=== PATIENT | male | born 1940 | race Caucasian/White ===

== ENCOUNTER → 2016-05-21 | Outpatient (CLI) | payer MEDICARE ==
[~2016-05-21] MED LIST: ASPI325T OR; ASPI81TA83 PO; ATENPOW PO; AZITPOW PO; CALCIUM GLUCONATE PO; CAPTPOW PO; GARLIC PO; ROSE HIPS PO; SIMV20TA2 OR; TUSSSUS5 OR; VITAMIN C PO; XOPEAER IN; vimpat PO
== END ==
LOC: M LAB 08:55
PROVIDERS: ATTEND Physician Assistant Medical
DX: R42 Dizziness and giddiness (principal)

== ENCOUNTER 2016-06-07 17:05 | Emergency (ER) | payer MEDICARE ==
[2016-06-07] MEDS ORDERED: ASPIRIN 325 MG TAB As Ordered ONE (18:04)
[2016-06-07] MEDS ORDERED: GI COCKTAIL 50ML BTL(HYOSCYAMINE/MAALOX/LIDOCAINE VISCOUS)(1:3:1) As Ordered ONE (18:04)
[2016-06-07] MEDS ORDERED: LABETALOL HCL 100 MG/20 ML VIAL As Ordered ONE (18:04)
[2016-06-07 18:11] LABS: BASO # 0.1 K/mm3 (0.0-0.2); BASO % 1.4 % (0.0-1.0); EOS # 0.2 K/mm3 (0.0-0.50); EOS % 4.5 % (0.0-3.0); LARGE UNSTAINED CELL # 0.1 K/mm3 (0.0-0.4); LARGE UNSTAINED CELL % 1.9 % (0.0-4.0); LYMPH # 1.1 K/mm3 (1.5-4.5); LYMPH % 21.6 % (24.0-44.0); MEAN CORPUSCULAR HEMOGLOBIN 29.6 pg (27.0-33.0); MEAN CORPUSCULAR HGB CONC 32.6 g/dl (32.0-36.5); MEAN CORPUSCULAR VOLUME 90.7 fl (80.0-96.0); MONO # 0.4 K/mm3 (0.0-0.8); MONO % 8.6 % (0.0-5.0); NEUTROPHILS # 2.8 K/mm3 (1.8-7.7); NEUTROPHILS % 61.9 % (36.0-66.0); PLATELET COUNT, AUTOMATED 140 k/mm3 (150-450); RED CELL DISTRIBUTION WIDTH 14.2 % (11.5-14.5); WHITE BLOOD COUNT 4.5 K/mm3 (4.0-10.0)
[2016-06-07 18:30] LABS: INR 1.01
[2016-06-07 18:32] LABS: ANION GAP 6 MEQ/L (8-16); BLOOD UREA NITROGEN 20 MG/DL (7-18); CALCIUM LEVEL 8.3 MG/DL (8.8-10.2); CARBON DIOXIDE LEVEL 31 MEQ/L (21-32); CHLORIDE LEVEL 104 MEQ/L (98-107); CREATININE FOR GFR 1.04 MG/DL (0.70-1.30); GLOMERULAR FILTRATION RATE > 60.0 (>42); GLUCOSE, FASTING 122 MG/DL (83-110); SODIUM LEVEL 141 MEQ/L (136-145)
--- NOTE | 2016-06-07 18:43 | REP ---
Portable chest, single AP view, 06:11 p.m.: Comparison is the PA and lateral chest of 10/11/2013. Lung melo are clear. Cardiac size is magnified by portable positioning. Sternotomy wires are again noted. 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 The zachary, mediastinum, and bony thorax are unremarkable. Impression: There are no acute cardiopulmonary findings. Signed by Mickey Kwon MD 06/07/2016 06:35 P
--- NOTE | 2016-06-07 19:29 | EDDOCDS ---
Nurse's Notes [facility] Name: Mario Gambino Age: 76 yrs Sex: Male : 1940 Arrival Date: 06/07/2016 Time: 17:05 Bed 13 Private MD: TITO CLINTON Diagnosis: Gastro-esophageal reflux disease with esophagitis;Chest pain, unspecified Presentation: 06/07 17:12 Presenting complaint: Patient states: sore throat since sat. today started with mid srm chest pain- has a cough and increases chest pain. denies chest pain radiating anywhere. 81 mg at 0800. Adult Sepsis Screening: The patient does not have new or worsening altered mentation. Patient's respiratory rate is less than 22. Systolic blood pressure is greater than 100. Patient has a qSOFA score of 0- Negative Sepsis Screen. Suicide/Homicide risk assessment- the patient denies having any suicidal and/or homicidal ideations and does not present with any other emotional, behavioral or mental health complaints. Status: Patient is not a service advocate contact or dependent. Transition of care: patient was not received from another setting of care. 17:12 Method Of Arrival: Walkin/Carried/Asstd srm 17:41 Acuity: LYNNE Level 3 mk4 Triage Assessment: 17:17 General: Appears in no apparent distress, Behavior is appropriate for age, cooperative. srm Pain: Pain currently is 4 out of 10 on a pain scale. At worst was 10 out of 10 on a pain scale. Historical: - Allergies: no known allergies; - Home Meds: 1. atorvastatin 80 mg oral tab 1 tab once daily (Last dose: 06/06/2016) 2. aspirin 81 mg Oral tab 1 tab once daily 3. allopurinol 100 mg Oral tab hs 4. captopril 12.5 mg Oral tab 1 tab daily 5. Depakote 500 mg Oral TbEC 2 times per day 6. Vitamin D Oral 50,000 unit weekly - PMHx: Hypercholesterolemia; Hypertension; Gout; - PSHx: open heart surgery; - Social history: Smoking status: Patient states former smoker of tobacco. No barriers to communication noted, The patient speaks fluent Mauritian, Speaks appropriately for age. - Family history: Not pertinent. - : The pt / caregiver states he / she is not on anticoagulants. Home medication list is obtained from the patient. - Exposure Risk Screening:: None identified. Screenin:41 Screening information is obtained from the patient. Fall risk: No risks identified. mk4 Assistance ADL's: requires no assistance with activities of daily living. Abuse/DV Screen: The patient / caregiver reports he/she is: not in a situation that causes fear, pain or injury. Nutritional screening: No deficits noted. Advance Directives: Currently, there is no health care proxy. There is no active DNR order. There is no living will. There is no Power of Folder Machine. Advance directive information has not previously been placed in an [facility] medical record. Further advance directive information is declined. home support is adequate. Assessment: 18:19 General: Appears in no apparent distress, comfortable, Behavior is cooperative. Pain: mk4 Location: chest Pain currently is 2 out of 10 on a pain scale. Cardiovascular: Rhythm is regular. 19:27 Reassessment: Patient appears in no apparent distress at this time. Patient states tm5 feeling better. Patient states symptoms have improved. Cardiovascular: Rhythm is regular. Vital Signs: 17:08 BP 167 / 101; Pulse 77; Resp 16; Temp 99.7(O); Pulse Ox 98% on R/A; Weight 93.89 kg elp (R); Height 5 ft. 11 in. (180.34 cm) (R); 17:40 BP 189 / 97 (auto/); mk4 17:41 Pulse 66 MON; Pulse Ox 96% ; mk4 17:55 BP 205 / 115 (auto/); mk4 17:56 Pulse 70 MON; Pulse Ox 97% ; mk4 18:55 BP 158 / 92 (auto/); tm5 18:56 Pulse 68 MON; Pulse Ox 92% ; tm5 19:27 BP 146 / 76; Pulse 63; Resp 18; Temp 97.8(O); Pulse Ox 95% on R/A; Pain 0/10; tm5 17:08 Body Mass Index 28.87 (93.89 kg, 180.34 cm) elp Vitals: 17:08 Log In Time: June 07, 2016 at 17:06. RN notified that patient meets [place] elp criteria. ED Course: 17:07 Patient visited by Trinity Laughlin PCA. elp 17:07 Patient moved to Waiting elp 17:08 TITO CLINTON is Private Physician. elp 17:10 Patient visited by Trinity Laughlin PCA. elp 17:18 Patient moved to PR srm 17:19 EKG done. (by ED staff). Reviewed by Kulwinder Santos MD. srm 17:41 Patient moved to 13 kcs 17:41 Triage Initiated mk4 17:41 The patient / caregiver is instructed regarding the plan of care and ED course. Cardiac mk4 monitor on. Pulse ox on. NIBP on. 17:41 Inserted saline lock: 20 gauge in left antecubital area and blood collected. No mk4 procedures done that require assistance. 17:47 Ortega Avenda[facility] F[facility]. ke 17:47 Patient visited by Ortega Avendaño FNP. ke 17:47 Patient visited by Ortega Avendaño FNP. ke 18:02 PT/INR Sent. mk4 18:02 Basic Metabolic Profile Sent. mk4 18:02 CBC with Diff Sent. mk4 18:02 Cardiac Injury Profile Sent. mk4 18:02 Troponin Sent. mk4 18:17 Patient visited by Ortega Avendaño FNP. ke 18:21 GATS (NEGATIVE STREP SCREEN) Sent. mk4 18:48 Patient visited by Ortega Avendaño FNP. ke 19:04 [facility] [place] Agreement was scanned into [employer] and attached to record. gb 19:09 TITO CLINTON is Referral Physician. ke 19:09 Lorne Reyna is Referral Physician. ke 19:12 Patient visited by Alice Adams RN. tm5 19:20 Chest, 1 View Returned. EDMS 19:26 Patient visited by Alice Adams RN. tm5 19:27 Discontinued lock intact, bleeding controlled, pressure dressing applied, No tm5 redness/swelling at site. Administered Medications: 18:18 Drug: Aspirin 325 mg [aspirin 325 mg tablet (1 tabs)] Route: PO; mk4 19:13 Follow up: Response: No Adverse Reaction tm5 18:18 Drug: Labetalol 10 mg [labetalol 5 mg/mL intravenous solution (2 mL)] Route: IVP; Rate: mk4 bolus; Infused Over: 2 mins; Site: left antecubital; 19:13 Follow up: Response: Blood pressure is improved; No Adverse Reaction tm5 18:18 Drug: GI Cocktail - (Alum-Mag Hydroxide-Simeth Suspension 225 mg-200 mg-25 mg/5 mL 30 mk4 ml, Lidocaine Liquid 2 % 10 ml, Hyoscyamine Liquid 10 ml) Route: PO; 19:12 Follow up: Response: No Adverse Reaction; Pain is decreased tm5 Order Results: Lab Order: Basic Metabolic Profile; SPEC'M 06/07/16 17:59 Test: GLUCOSE, FASTING; Value: 122; Range: 83-110; Abnormal: Above high normal; Units: MG/DL; Status: F Test: BLOOD UREA NITROGEN; Value: 20; Range: 7-18; Abnormal: Above high normal; Units: MG/DL; Status: F Test: CREATININE FOR GFR; Value: 1.04; Range: 0.70-1.30; Units: MG/DL; Status: F Test: GLOMERULAR FILTRATION RATE; Value: > 60.0; Range: >42; Status: F Test: SODIUM LEVEL; Value: 141; Range: 136-145; Units: MEQ/L; Status: F Test: POTASSIUM SERUM; Value: 4.0; Range: 3.5-5.1; Units: MEQ/L; Status: F Test: CHLORIDE LEVEL; Value: 104; Range: 98-107; Units: MEQ/L; Status: F Test: CARBON DIOXIDE LEVEL; Value: 31; Range: 21-32; Units: MEQ/L; Status: F Test: ANION GAP; Value: 6; Range: 8-16; Abnormal: Below low normal; Units: MEQ/L; Status: F Test: CALCIUM LEVEL; Value: 8.3; Range: 8.8-10.2; Abnormal: Below low normal; Units: MG/DL; Status: F Test Note: ; Units are mL/min/1.73 m2 Chronic Kidney Disease Staging per NKF: Stage I & II GFR >=60 Normal to Mildly Decreased Stage III GFR 30-59 Moderately Decreased Stage IV GFR 15-29 Severely Decreased Stage V GFR <15 Very Little GFR Left ESRD GFR <15 on MAIL DISTRIBUTION SCHEME EXAMINER Lab Order: CBC with Diff; SPEC'M 06/07/16 17:59 Test: WHITE BLOOD COUNT; Value: 4.5; Range: 4.0-10.0; Units: K/mm3; Status: F Test: RED BLOOD COUNT; Value: 4.34; Range: 4.30-6.10; Units: M/mm3; Status: F Test: HEMOGLOBIN; Value: 12.8; Range: 14.0-18.0; Abnormal: Below low normal; Units: g/dl; Status: F Test: HEMATOCRIT; Value: 39.4; Range: 42.0-52.0; Abnormal: Below low normal; Units: %; Status: F Test: MEAN CORPUSCULAR VOLUME; Value: 90.7; Range: 80.0-96.0; Units: fl; Status: F Test: MEAN CORPUSCULAR HEMOGLOBIN; Value: 29.6; Range: 27.0-33.0; Units: pg; Status: F Test: MEAN CORPUSCULAR HGB CONC; Value: 32.6; Range: 32.0-36.5; Units: g/dl; Status: F Test: RED CELL DISTRIBUTION WIDTH; Value: 14.2; Range: 11.5-14.5; Units: %; Status: F Test: PLATELET COUNT, AUTOMATED; Value: 140; Range: 150-450; Abnormal: Below low normal; Units: k/mm3; Status: F Test: NEUTROPHILS %; Value: 61.9; Range: 36.0-66.0; Units: %; Status: F Test: LYMPH %; Value: 21.6; Range: 24.0-44.0; Abnormal: Below low normal; Units: %; Status: F Test: MONO %; Value: 8.6; Range: 0.0-5.0; Abnormal: Above high normal; Units: %; Status: F Test: EOS %; Value: 4.5; Range: 0.0-3.0; Abnormal: Above high normal; Units: %; Status: F Test: BASO %; Value: 1.4; Range: 0.0-1.0; Abnormal: Above high normal; Units: %; Status: F Test: LARGE UNSTAINED CELL %; Value: 1.9; Range: 0.0-4.0; Units: %; Status: F Test: NEUTROPHILS #; Value: 2.8; Range: 1.8-7.7; Units: K/mm3; Status: F Test: LYMPH #; Value: 1.1; Range: 1.5-4.5; Abnormal: Below low normal; Units: K/mm3; Status: F Test: MONO #; Value: 0.4; Range: 0.0-0.8; Units: K/mm3; Status: F Test: EOS #; Value: 0.2; Range: 0.0-0.50; Units: K/mm3; Status: F Test: BASO #; Value: 0.1; Range: 0.0-0.2; Units: K/mm3; Status: F Test: LARGE UNSTAINED CELL #; Value: 0.1; Range: 0.0-0.4; Units: K/mm3; Status: F Lab Order: Cardiac Injury Profile; [facility]' 06/07/16 17:59 Test: CPK CREATINE PHOSPHOKINASE; Value: 282; Range: 39-308; Units: U/L; Status: F Test: CK-MB VALUE MASS; Value: 1.5; Range: 0.0-3.6; Units: NG/ML; Status: F Test: MB/CK RELATIVE INDEX; Value: 0.53; Range: < OR =4; Status: F Test Note: ; DIAGNOSIS CRITERIA MMB ng/ml Relative Index (RI) NON-AMI < or = 5 N/A JAY ZONE > 5 < or = 4 AMI > 5 > 4 Lab Order: Troponin; [facility]' 06/07/16 17:59 Test: TROPONIN I; Value: < 0.02; Range: < 0.10; Units: NG/ML; Status: F Test Note: ; Troponin I Reference Interval for [employer] LOCI: 99th Percentile= 0.00-0.045 ng/ml Risk Stratification: <= 0.10 ng/ml Decreased Risk for Adverse Clinical Events. 0.10-1.50 ng/ml Increased Risk for Adverse Clinical Events. Evaluation of additional criterion and/or repeat testing in 2-6 hours is suggested to rule out myocardial damage. >= 1.50 ng/ml Indicative of Myocardial Injury. Lab Order: PT/INR; SPEC' 06/07/16 17:59 Test: PROTHROMBIN TIME; Value: 13.4; Range: 12.3-14.5; Units: SECONDS; Status: F Test: INR; Value: 1.01; Status: F Test Note: ; THERAPUTIC HUMAN INR VALUES INDICATIONS NORMAL RANGES PROPHYLAXIS/TREATMENT OF: VENOUS THROMBOSIS 2.0-3.0 PULMONARY EMBOLISM 2.0-3.0 PREVENTION OF SYSTEMIC EMBOLISM FROM: TISSUE HEART VALVES 2.0-3.0 ACUTE MYOCARDIAL INFARCTION 2.0-3.0 VALVULAR HEART DISEASE 2.0-3.0 ATRIAL FIBRILLATION 2.0-3.0 MECHANICAL VALVES(HIGH RISK) 2.5-3.5 RECURRENT MYOCARDIAL INFARCTION 2.5-3.5 Lab Order: DEPAKOTE; SPEC'M 06/07/16 17:59 Test: VALPROIC ACID (DEPAKOTE); Value: 45.0; Range: 50.0-100.0; Abnormal: Below low normal; Units: UG/ML; Status: F Radiology Order: Chest, 1 View Test: Chest, 1 View REASON FOR EXAMINATION: Chest Pain; Portable chest, single AP view, 06:11 p.m.:; ; Comparison is the PA and lateral chest of 10/11/2013.; ; Lung melo are clear. 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 shahla 19:27 Discharge Assessment: Patient awake, alert and oriented x 3. No cognitive and/or tm5 functional deficits noted. Patient verbalized understanding of disposition instructions. patient administered narcotics - no. The following High Risk Discharge criteria are identified: None. Discharged to home ambulatory, with significant other. Condition: good Condition: stable Condition: improved. Discharge instructions given to patient, Instructed on discharge instructions, follow up and referral plans. medication usage, Demonstrated understanding of instructions, medications, Pt was receptive of discharge instructions/ teaching. Prescriptions given X 1. No special radiology studies were completed. Property :Personal belongings accompany Pt. 19:28 Patient left the ED. tm5 Signatures: Dispatcher [employer] EDMS Kanchan Ortez RN RN kcs Michelson, Staci, RN RN srm Ger, Dominique, Reg Reg gb Ortega Avendaño, CIVIL PROJECT ENGINEER CIVIL PROJECT ENGINEER Trinity Nesbitt, MINH PHOTOGRAPHER elp Kindra Smith, RN RN mk4 Alice Adams,RN RN tm5 MTDD
--- NOTE | 2016-06-07 19:29 | EDDOCDS ---
Physician Documentation [facility] Name: Mario Gambino Age: 76 yrs Sex: Male : 1940 Arrival Date: 06/07/2016 Time: 17:05 Bed 13 Private MD: TITO CLINTON Disposition: 06/07/16 19:09 Discharged to Home/Self Care. Impression: Gastro-esophageal reflux disease with esophagitis, Chest pain, unspecified. - Condition is Stable. - Discharge Instructions: Nonspecific Chest Pain, Gastroesophageal Reflux Disease, Adult. - Prescriptions for Prilosec 20 mg Oral Capsule - take 1 capsule by ORAL route once daily; 10 capsule. - Medication Reconciliation, Local Pharmacy Hours form. - Follow up: TITO CLINTON; When: 4 - 5 days; Reason: Recheck today's complaints, Continuance of care. Follow up: Lorne Reyna; When: Call to arrange an appointment; Reason: Further diagnostic work-up, Continuance of care. - Problem is an acute exacerbation. - Symptoms have improved. Historical: - Allergies: no known allergies; - Home Meds: 1. atorvastatin 80 mg oral tab 1 tab once daily (Last dose: 06/06/2016) 2. aspirin 81 mg Oral tab 1 tab once daily 3. allopurinol 100 mg Oral tab hs 4. captopril 12.5 mg Oral tab 1 tab daily 5. Depakote 500 mg Oral TbEC 2 times per day 6. Vitamin D Oral 50,000 unit weekly - PMHx: Hypercholesterolemia; Hypertension; Gout; - PSHx: open heart surgery; - Social history: Smoking status: Patient states former smoker of tobacco. No barriers to communication noted, The patient speaks fluent Bolivian, Speaks appropriately for age. - Family history: Not pertinent. - : The pt / caregiver states he / she is not on anticoagulants. Home medication list is obtained from the patient. - Exposure Risk Screening:: None identified. Vital Signs: 06/07 17:08 BP 167 / 101; Pulse 77; Resp 16; Temp 99.7(O); Pulse Ox 98% on R/A; Weight 93.89 kg / elp 206.99 lbs (R); Height 5 ft. 11 in. (180.34 cm) (R); 17:40 BP 189 / 97 (auto/); mk4 17:41 Pulse 66 MON; Pulse Ox 96% ; mk4 17:55 BP 205 / 115 (auto/); mk4 17:56 Pulse 70 MON; Pulse Ox 97% ; mk4 18:55 BP 158 / 92 (auto/); tm5 18:56 Pulse 68 MON; Pulse Ox 92% ; tm5 19:27 BP 146 / 76; Pulse 63; Resp 18; Temp 97.8(O); Pulse Ox 95% on R/A; Pain 0/10; tm5 17:08 Body Mass Index 28.87 (93.89 kg, 180.34 cm) elp MDM: 17:20 ECG WITH READING ER PHYS+CARDIAG ordered. EDMS 17:44 Business Applications Developer/Pulse Ox/q 30 min VS ordered. br1 17:44 IV Saline Lock ordered. br1 17:44 Rhythm Strip to chart ordered. br1 17:44 Undress patient appropriately for examination ordered. br1 17:45 Strep Screen, Nursing ordered. br1 17:45 Basic Metabolic Profile Ordered. EDMS 17:45 CBC with Diff Ordered. EDMS 17:45 Cardiac Injury Profile Ordered. EDMS 17:45 Troponin Ordered. EDMS 17:45 Chest, 1 View Ordered. EDMS 17:53 Aspirin 325 mg PO once ordered. ke 17:53 Labetalol 10 mg IVP at bolus once over 2 mins ordered. ke 17:53 GI Cocktail - (Alum-Mag Hydroxide-Simeth 30 ml, Lidocaine 10 ml, Hyoscyamine 10 ml) PO ke once; Pre-mixed 50mL unit dose ordered. 17:54 PT/INR Ordered. EDMS 17:54 DEPAKOTE Ordered. EDMS 18:20 GATS (NEGATIVE STREP SCREEN) Ordered. EDMS 18:44 Basic Metabolic Profile Reviewed. ke 18:44 CBC with Diff Reviewed. ke 18:44 DEPAKOTE Reviewed. ke 18:44 Cardiac Injury Profile Reviewed. ke 18:44 Troponin Reviewed. ke 18:44 PT/INR Reviewed. ke 19:00 Financial registration complete. gb 19:04 [facility] Payment Agreement was scanned into [employer] and attached to record. gb Administered Medications: 18:18 Drug: Aspirin 325 mg [aspirin 325 mg tablet (1 tabs)] Route: PO; mk4 19:13 Follow up: Response: No Adverse Reaction tm5 18:18 Drug: Labetalol 10 mg [labetalol 5 mg/mL intravenous solution (2 mL)] Route: IVP; Rate: mk4 bolus; Infused Over: 2 mins; Site: left antecubital; 19:13 Follow up: Response: Blood pressure is improved; No Adverse Reaction tm5 18:18 Drug: GI Cocktail - (Alum-Mag Hydroxide-Simeth Suspension 225 mg-200 mg-25 mg/5 mL 30 mk4 ml, Lidocaine Liquid 2 % 10 ml, Hyoscyamine Liquid 10 ml) Route: PO; 19:12 Follow up: Response: No Adverse Reaction; Pain is decreased tm5 Signatures: Dispatcher [employer] EDMS Candida Vinson, RN RN srm Ger, Dominique, Reg Reg gb Ortega Avendaño, WELT TRIMMING MACHINE OPERATOR WELT TRIMMING MACHINE OPERATOR Kulwinder Schwartz MD MD br1 Kindra Smith RN RN mk4 Alice Adams RN RN tm5 The chart was reviewed and I authenticate all verbal orders and agree with the evaluation and treatment provided.Attachments: 19:04 [facility] Payment Agreement gb MTDD
--- NOTE | 2016-06-09 20:29 | EDDOCDS ---
Physician Documentation [facility] Name: Mario Gambino Age: 76 yrs Sex: Male : 1940 Arrival Date: 06/07/2016 Time: 17:05 Bed 13 Private MD: TITO CLINTON Disposition: 06/07/16 19:09 Discharged to Home/Self Care. Impression: Gastro-esophageal reflux disease with esophagitis, Chest pain, unspecified. - Condition is Stable. - Discharge Instructions: Nonspecific Chest Pain, Gastroesophageal Reflux Disease, Adult. - Prescriptions for Prilosec 20 mg Oral Capsule - take 1 capsule by ORAL route once daily; 10 capsule. - Medication Reconciliation, Local Pharmacy Hours form. - Follow up: TITO CLINTON; When: 4 - 5 days; Reason: Recheck today's complaints, Continuance of care. Follow up: Lorne Reyna; When: Call to arrange an appointment; Reason: Further diagnostic work-up, Continuance of care. - Problem is an acute exacerbation. - Symptoms have improved. Historical: - Allergies: no known allergies; - Home Meds: 1. atorvastatin 80 mg oral tab 1 tab once daily (Last dose: 06/06/2016) 2. aspirin 81 mg Oral tab 1 tab once daily 3. allopurinol 100 mg Oral tab hs 4. captopril 12.5 mg Oral tab 1 tab daily 5. Depakote 500 mg Oral TbEC 2 times per day 6. Vitamin D Oral 50,000 unit weekly - PMHx: Hypercholesterolemia; Hypertension; Gout; - PSHx: open heart surgery; - Social history: Smoking status: Patient states former smoker of tobacco. No barriers to communication noted, The patient speaks fluent Bulgarian, Speaks appropriately for age. - Family history: Not pertinent. - : The pt / caregiver states he / she is not on anticoagulants. Home medication list is obtained from the patient. - Exposure Risk Screening:: None identified. Vital Signs: 06/07 17:08 BP 167 / 101; Pulse 77; Resp 16; Temp 99.7(O); Pulse Ox 98% on R/A; Weight 93.89 kg / elp 206.99 lbs (R); Height 5 ft. 11 in. (180.34 cm) (R); 17:40 BP 189 / 97 (auto/); mk4 17:41 Pulse 66 MON; Pulse Ox 96% ; mk4 17:55 BP 205 / 115 (auto/); mk4 17:56 Pulse 70 MON; Pulse Ox 97% ; mk4 18:55 BP 158 / 92 (auto/); tm5 18:56 Pulse 68 MON; Pulse Ox 92% ; tm5 19:27 BP 146 / 76; Pulse 63; Resp 18; Temp 97.8(O); Pulse Ox 95% on R/A; Pain 0/10; tm5 17:08 Body Mass Index 28.87 (93.89 kg, 180.34 cm) elp MDM: 17:20 ECG WITH READING ER PHYS+CARDIAG ordered. EDMS 17:44 Final Coat Sprayer/Pulse Ox/q 30 min VS ordered. br1 17:44 IV Saline Lock ordered. br1 17:44 Rhythm Strip to chart ordered. br1 17:44 Undress patient appropriately for examination ordered. br1 17:45 Strep Screen, Nursing ordered. br1 17:45 Basic Metabolic Profile Ordered. EDMS 17:45 CBC with Diff Ordered. EDMS 17:45 Cardiac Injury Profile Ordered. EDMS 17:45 Troponin Ordered. EDMS 17:45 Chest, 1 View Ordered. EDMS 17:53 Aspirin 325 mg PO once ordered. ke 17:53 Labetalol 10 mg IVP at bolus once over 2 mins ordered. ke 17:53 GI Cocktail - (Alum-Mag Hydroxide-Simeth 30 ml, Lidocaine 10 ml, Hyoscyamine 10 ml) PO ke once; Pre-mixed 50mL unit dose ordered. 17:54 PT/INR Ordered. EDMS 17:54 DEPAKOTE Ordered. EDMS 18:20 GATS (NEGATIVE STREP SCREEN) Ordered. EDMS 18:44 Basic Metabolic Profile Reviewed. ke 18:44 CBC with Diff Reviewed. ke 18:44 DEPAKOTE Reviewed. ke 18:44 Cardiac Injury Profile Reviewed. ke 18:44 Troponin Reviewed. ke 18:44 PT/INR Reviewed. ke 19:00 Financial registration complete. gb 19:04 [facility] Payment Agreement was scanned into [employer] and attached to record. gb 06/08 10:53 T-Sheet-- Draft Copy was scanned into [employer] and attached to record. gb 10:53 ECG/EKG was scanned into [employer] and attached to record. gb Administered Medications: 06/07 18:18 Drug: Aspirin 325 mg [aspirin 325 mg tablet (1 tabs)] Route: PO; mk4 19:13 Follow up: Response: No Adverse Reaction tm5 18:18 Drug: Labetalol 10 mg [labetalol 5 mg/mL intravenous solution (2 mL)] Route: IVP; Rate: mk4 bolus; Infused Over: 2 mins; Site: left antecubital; 19:13 Follow up: Response: Blood pressure is improved; No Adverse Reaction tm5 18:18 Drug: GI Cocktail - (Alum-Mag Hydroxide-Simeth Suspension 225 mg-200 mg-25 mg/5 mL 30 mk4 ml, Lidocaine Liquid 2 % 10 ml, Hyoscyamine Liquid 10 ml) Route: PO; 19:12 Follow up: Response: No Adverse Reaction; Pain is decreased tm5 Signatures: Dispatcher [employer] EDMS Candida Vinson, RN RN srm Ger, Dominique, Reg Reg gb Ortega Avendaño, HYDROSTATIC TESTER HYDROSTATIC TESTER Kulwinder Schwartz MD MD br1 Kindra Smith RN RN mk4 Alice Adams RN RN tm5 The chart was reviewed and I authenticate all verbal orders and agree with the evaluation and treatment provided.Attachments: 19:04 [facility] Payment Agreement gb 06/08 10:53 T-Sheet-- Draft Copy gb 10:53 ECG/EKG Chart Complete MTDD
--- NOTE | 2016-06-09 20:29 | EDDOCDS ---
Physician Documentation [facility] Name: Mario Gambino Age: 76 yrs Sex: Male : 1940 Arrival Date: 06/07/2016 Time: 17:05 Bed 13 Private MD: TITO CLINTON Disposition: 06/07/16 19:09 Discharged to Home/Self Care. Impression: Gastro-esophageal reflux disease with esophagitis, Chest pain, unspecified. - Condition is Stable. - Discharge Instructions: Nonspecific Chest Pain, Gastroesophageal Reflux Disease, Adult. - Prescriptions for Prilosec 20 mg Oral Capsule - take 1 capsule by ORAL route once daily; 10 capsule. - Medication Reconciliation, Local Pharmacy Hours form. - Follow up: TITO CLINTON; When: 4 - 5 days; Reason: Recheck today's complaints, Continuance of care. Follow up: Lorne Reyna; When: Call to arrange an appointment; Reason: Further diagnostic work-up, Continuance of care. - Problem is an acute exacerbation. - Symptoms have improved. Historical: - Allergies: no known allergies; - Home Meds: 1. atorvastatin 80 mg oral tab 1 tab once daily (Last dose: 06/06/2016) 2. aspirin 81 mg Oral tab 1 tab once daily 3. allopurinol 100 mg Oral tab hs 4. captopril 12.5 mg Oral tab 1 tab daily 5. Depakote 500 mg Oral TbEC 2 times per day 6. Vitamin D Oral 50,000 unit weekly - PMHx: Hypercholesterolemia; Hypertension; Gout; - PSHx: open heart surgery; - Social history: Smoking status: Patient states former smoker of tobacco. No barriers to communication noted, The patient speaks fluent Zimbabwean, Speaks appropriately for age. - Family history: Not pertinent. - : The pt / caregiver states he / she is not on anticoagulants. Home medication list is obtained from the patient. - Exposure Risk Screening:: None identified. Vital Signs: 06/07 17:08 BP 167 / 101; Pulse 77; Resp 16; Temp 99.7(O); Pulse Ox 98% on R/A; Weight 93.89 kg / elp 206.99 lbs (R); Height 5 ft. 11 in. (180.34 cm) (R); 17:40 BP 189 / 97 (auto/); mk4 17:41 Pulse 66 MON; Pulse Ox 96% ; mk4 17:55 BP 205 / 115 (auto/); mk4 17:56 Pulse 70 MON; Pulse Ox 97% ; mk4 18:55 BP 158 / 92 (auto/); tm5 18:56 Pulse 68 MON; Pulse Ox 92% ; tm5 19:27 BP 146 / 76; Pulse 63; Resp 18; Temp 97.8(O); Pulse Ox 95% on R/A; Pain 0/10; tm5 17:08 Body Mass Index 28.87 (93.89 kg, 180.34 cm) elp MDM: 17:20 ECG WITH READING ER PHYS+CARDIAG ordered. EDMS 17:44 Mri Specialist/Pulse Ox/q 30 min VS ordered. br1 17:44 IV Saline Lock ordered. br1 17:44 Rhythm Strip to chart ordered. br1 17:44 Undress patient appropriately for examination ordered. br1 17:45 Strep Screen, Nursing ordered. br1 17:45 Basic Metabolic Profile Ordered. EDMS 17:45 CBC with Diff Ordered. EDMS 17:45 Cardiac Injury Profile Ordered. EDMS 17:45 Troponin Ordered. EDMS 17:45 Chest, 1 View Ordered. EDMS 17:53 Aspirin 325 mg PO once ordered. ke 17:53 Labetalol 10 mg IVP at bolus once over 2 mins ordered. ke 17:53 GI Cocktail - (Alum-Mag Hydroxide-Simeth 30 ml, Lidocaine 10 ml, Hyoscyamine 10 ml) PO ke once; Pre-mixed 50mL unit dose ordered. 17:54 PT/INR Ordered. EDMS 17:54 DEPAKOTE Ordered. EDMS 18:20 GATS (NEGATIVE STREP SCREEN) Ordered. EDMS 18:44 Basic Metabolic Profile Reviewed. ke 18:44 CBC with Diff Reviewed. ke 18:44 DEPAKOTE Reviewed. ke 18:44 Cardiac Injury Profile Reviewed. ke 18:44 Troponin Reviewed. ke 18:44 PT/INR Reviewed. ke 19:00 Financial registration complete. gb 19:04 [facility] Payment Agreement was scanned into [employer] and attached to record. gb 06/08 10:53 T-Sheet-- Draft Copy was scanned into [employer] and attached to record. gb 10:53 ECG/EKG was scanned into [employer] and attached to record. gb Administered Medications: 06/07 18:18 Drug: Aspirin 325 mg [aspirin 325 mg tablet (1 tabs)] Route: PO; mk4 19:13 Follow up: Response: No Adverse Reaction tm5 18:18 Drug: Labetalol 10 mg [labetalol 5 mg/mL intravenous solution (2 mL)] Route: IVP; Rate: mk4 bolus; Infused Over: 2 mins; Site: left antecubital; 19:13 Follow up: Response: Blood pressure is improved; No Adverse Reaction tm5 18:18 Drug: GI Cocktail - (Alum-Mag Hydroxide-Simeth Suspension 225 mg-200 mg-25 mg/5 mL 30 mk4 ml, Lidocaine Liquid 2 % 10 ml, Hyoscyamine Liquid 10 ml) Route: PO; 19:12 Follow up: Response: No Adverse Reaction; Pain is decreased tm5 Signatures: Dispatcher MedHost EDMS Candida Vinson, RN RN srm Ger, Dominique, Reg Reg gb Ortega Avendaño, HAND COREMAKER HAND COREMAKER Kulwinder Schwartz MD MD br1 Kindra Smith RN RN mk4 Alice Adams RN RN tm5 The chart was reviewed and I authenticate all verbal orders and agree with the evaluation and treatment provided.Attachments: 19:04 [facility] Payment Agreement gb 06/08 10:53 T-Sheet-- Draft Copy gb 10:53 ECG/EKG Chart Complete MTDD
--- NOTE | 2016-06-09 20:30 | EDDOCDS ---
Nurse's Notes [facility] Name: Mario Gambino Age: 76 yrs Sex: Male : 1940 Arrival Date: 06/07/2016 Time: 17:05 Bed 13 Private MD: TITO CLINTON Diagnosis: Gastro-esophageal reflux disease with esophagitis;Chest pain, unspecified Presentation: 06/07 17:12 Presenting complaint: Patient states: sore throat since sat. today started with mid srm chest pain- has a cough and increases chest pain. denies chest pain radiating anywhere. 81 mg at 0800. Adult Sepsis Screening: The patient does not have new or worsening altered mentation. Patient's respiratory rate is less than 22. Systolic blood pressure is greater than 100. Patient has a qSOFA score of 0- Negative Sepsis Screen. Suicide/Homicide risk assessment- the patient denies having any suicidal and/or homicidal ideations and does not present with any other emotional, behavioral or mental health complaints. 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 Transition of care: patient was not received from another setting of care. 17:12 Method Of Arrival: Walkin/Carried/Asstd srm 17:41 Acuity: LYNNE Level 3 mk4 Triage Assessment: 17:17 General: Appears in no apparent distress, Behavior is appropriate for age, cooperative. srm Pain: Pain currently is 4 out of 10 on a pain scale. At worst was 10 out of 10 on a pain scale. Historical: - Allergies: no known allergies; - Home Meds: 1. atorvastatin 80 mg oral tab 1 tab once daily (Last dose: 06/06/2016) 2. aspirin 81 mg Oral tab 1 tab once daily 3. allopurinol 100 mg Oral tab hs 4. captopril 12.5 mg Oral tab 1 tab daily 5. Depakote 500 mg Oral TbEC 2 times per day 6. Vitamin D Oral 50,000 unit weekly - PMHx: Hypercholesterolemia; Hypertension; Gout; - PSHx: open heart surgery; - Social history: Smoking status: Patient states former smoker of tobacco. No barriers to communication noted, The patient speaks fluent Niuean, Speaks appropriately for age. - Family history: Not pertinent. - : The pt / caregiver states he / she is not on anticoagulants. Home medication list is obtained from the patient. - Exposure Risk Screening:: None identified. Screenin:41 Screening information is obtained from the patient. Fall risk: No risks identified. mk4 Assistance ADL's: requires no assistance with activities of daily living. Abuse/DV Screen: The patient / caregiver reports he/she is: not in a situation that causes fear, pain or injury. Nutritional screening: No deficits noted. Advance Directives: Currently, there is no health care proxy. There is no active DNR order. There is no living will. There is no Power of Gravity Prospecting Observer Helper. Advance directive information has not previously been placed in an [facility] medical record. Further advance directive information is declined. home support is adequate. Assessment: 18:19 General: Appears in no apparent distress, comfortable, Behavior is cooperative. Pain: mk4 Location: chest Pain currently is 2 out of 10 on a pain scale. Cardiovascular: Rhythm is regular. 19:27 Reassessment: Patient appears in no apparent distress at this time. Patient states tm5 feeling better. Patient states symptoms have improved. Cardiovascular: Rhythm is regular. Vital Signs: 17:08 BP 167 / 101; Pulse 77; Resp 16; Temp 99.7(O); Pulse Ox 98% on R/A; Weight 93.89 kg elp (R); Height 5 ft. 11 in. (180.34 cm) (R); 17:40 BP 189 / 97 (auto/); mk4 17:41 Pulse 66 MON; Pulse Ox 96% ; mk4 17:55 BP 205 / 115 (auto/); mk4 17:56 Pulse 70 MON; Pulse Ox 97% ; mk4 18:55 BP 158 / 92 (auto/); tm5 18:56 Pulse 68 MON; Pulse Ox 92% ; tm5 19:27 BP 146 / 76; Pulse 63; Resp 18; Temp 97.8(O); Pulse Ox 95% on R/A; Pain 0/10; tm5 17:08 Body Mass Index 28.87 (93.89 kg, 180.34 cm) elp Vitals: 17:08 Log In Time: June 07, 2016 at 17:06. RN notified that patient meets Red Flag elp criteria. ED Course: 17:07 Patient visited by Trinity Laughlin PCA. elp 17:07 Patient moved to Waiting elp 17:08 TITO CLINTON is Private Physician. elp 17:10 Patient visited by Trinity Laughlin PCA. elp 17:18 Patient moved to PR srm 17:19 EKG done. (by ED staff). Reviewed by Kulwinder Santos MD. srm 17:41 Patient moved to 13 kcs 17:41 Triage Initiated mk4 17:41 The patient / caregiver is instructed regarding the plan of care and ED course. Cardiac mk4 monitor on. Pulse ox on. NIBP on. 17:41 Inserted saline lock: 20 gauge in left antecubital area and blood collected. No mk4 procedures done that require assistance. 17:47 Ortega Avendaño FNP is [facility]. ke 17:47 Patient visited by Ortega Avendaño FNP. ke 17:47 Patient visited by Ortega Avendaño FNP. ke 18:02 PT/INR Sent. mk4 18:02 Basic Metabolic Profile Sent. mk4 18:02 CBC with Diff Sent. mk4 18:02 Cardiac Injury Profile Sent. mk4 18:02 Troponin Sent. mk4 18:17 Patient visited by Ortega Avendaño FNP. ke 18:21 GATS (NEGATIVE STREP SCREEN) Sent. mk4 18:48 Patient visited by Ortega Avendaño FNP. ke 19:04 [facility] Payment Agreement was scanned into [employer] and attached to record. gb 19:09 TITO CLINTON is Referral Physician. ke 19:09 Lorne Reyna is Referral Physician. ke 19:12 Patient visited by Alice Adams RN. tm5 19:20 Chest, 1 View Returned. EDMS 19:26 Patient visited by Alice Adams RN. tm5 19:27 Discontinued lock intact, bleeding controlled, pressure dressing applied, No tm5 redness/swelling at site. 06/08 10:53 T-Sheet-- Draft Copy was scanned into [employer] and attached to record. gb 10:53 ECG/EKG was scanned into [employer] and attached to record. gb Administered Medications: 06/07 18:18 Drug: Aspirin 325 mg [aspirin 325 mg tablet (1 tabs)] Route: PO; mk4 19:13 Follow up: Response: No Adverse Reaction tm5 18:18 Drug: Labetalol 10 mg [labetalol 5 mg/mL intravenous solution (2 mL)] Route: IVP; Rate: mk4 bolus; Infused Over: 2 mins; Site: left antecubital; 19:13 Follow up: Response: Blood pressure is improved; No Adverse Reaction tm5 18:18 Drug: GI Cocktail - (Alum-Mag Hydroxide-Simeth Suspension 225 mg-200 mg-25 mg/5 mL 30 mk4 ml, Lidocaine Liquid 2 % 10 ml, Hyoscyamine Liquid 10 ml) Route: PO; 19:12 Follow up: Response: No Adverse Reaction; Pain is decreased tm5 Order Results: Lab Order: Basic Metabolic Profile; SPEC'M 06/07/16 17:59 Test: GLUCOSE, FASTING; Value: 122; Range: 83-110; Abnormal: Above high normal; Units: MG/DL; Status: F Test: BLOOD UREA NITROGEN; Value: 20; Range: 7-18; Abnormal: Above high normal; Units: MG/DL; Status: F Test: CREATININE FOR GFR; Value: 1.04; Range: 0.70-1.30; Units: MG/DL; Status: F Test: GLOMERULAR FILTRATION RATE; Value: > 60.0; Range: >42; Status: F Test: SODIUM LEVEL; Value: 141; Range: 136-145; Units: MEQ/L; Status: F Test: POTASSIUM SERUM; Value: 4.0; Range: 3.5-5.1; Units: MEQ/L; Status: F Test: CHLORIDE LEVEL; Value: 104; Range: 98-107; Units: MEQ/L; Status: F Test: CARBON DIOXIDE LEVEL; Value: 31; Range: 21-32; Units: MEQ/L; Status: F Test: ANION GAP; Value: 6; Range: 8-16; Abnormal: Below low normal; Units: MEQ/L; Status: F Test: CALCIUM LEVEL; Value: 8.3; Range: 8.8-10.2; Abnormal: Below low normal; Units: MG/DL; Status: F Test Note: ; Units are mL/min/1.73 m2 Chronic Kidney Disease Staging per NKF: Stage I & II GFR >=60 Normal to Mildly Decreased Stage III GFR 30-59 Moderately Decreased Stage IV GFR 15-29 Severely Decreased Stage V GFR <15 Very Little GFR Left ESRD GFR <15 on SUPERVISOR SOAKERS Lab Order: CBC with Diff; SPEC'M 06/07/16 17:59 Test: WHITE BLOOD COUNT; Value: 4.5; Range: 4.0-10.0; Units: K/mm3; Status: F Test: RED BLOOD COUNT; Value: 4.34; Range: 4.30-6.10; Units: M/mm3; Status: F Test: HEMOGLOBIN; Value: 12.8; Range: 14.0-18.0; Abnormal: Below low normal; Units: g/dl; Status: F Test: HEMATOCRIT; Value: 39.4; Range: 42.0-52.0; Abnormal: Below low normal; Units: %; Status: F Test: MEAN CORPUSCULAR VOLUME; Value: 90.7; Range: 80.0-96.0; Units: fl; Status: F Test: MEAN CORPUSCULAR HEMOGLOBIN; Value: 29.6; Range: 27.0-33.0; Units: pg; Status: F Test: MEAN CORPUSCULAR HGB CONC; Value: 32.6; Range: 32.0-36.5; Units: g/dl; Status: F Test: RED CELL DISTRIBUTION WIDTH; Value: 14.2; Range: 11.5-14.5; Units: %; Status: F Test: PLATELET COUNT, AUTOMATED; Value: 140; Range: 150-450; Abnormal: Below low normal; Units: k/mm3; Status: F Test: NEUTROPHILS %; Value: 61.9; Range: 36.0-66.0; Units: %; Status: F Test: LYMPH %; Value: 21.6; Range: 24.0-44.0; Abnormal: Below low normal; Units: %; Status: F Test: MONO %; Value: 8.6; Range: 0.0-5.0; Abnormal: Above high normal; Units: %; Status: F Test: EOS %; Value: 4.5; Range: 0.0-3.0; Abnormal: Above high normal; Units: %; Status: F Test: BASO %; Value: 1.4; Range: 0.0-1.0; Abnormal: Above high normal; Units: %; Status: F Test: LARGE UNSTAINED CELL %; Value: 1.9; Range: 0.0-4.0; Units: %; Status: F Test: NEUTROPHILS #; Value: 2.8; Range: 1.8-7.7; Units: K/mm3; Status: F Test: LYMPH #; Value: 1.1; Range: 1.5-4.5; Abnormal: Below low normal; Units: K/mm3; Status: F Test: MONO #; Value: 0.4; Range: 0.0-0.8; Units: K/mm3; Status: F Test: EOS #; Value: 0.2; Range: 0.0-0.50; Units: K/mm3; Status: F Test: BASO #; Value: 0.1; Range: 0.0-0.2; Units: K/mm3; Status: F Test: LARGE UNSTAINED CELL #; Value: 0.1; Range: 0.0-0.4; Units: K/mm3; Status: F Lab Order: Cardiac Injury Profile; [facility] 06/07/16 17:59 Test: CPK CREATINE PHOSPHOKINASE; Value: 282; Range: 39-308; Units: U/L; Status: F Test: CK-MB VALUE MASS; Value: 1.5; Range: 0.0-3.6; Units: NG/ML; Status: F Test: MB/CK RELATIVE INDEX; Value: 0.53; Range: < OR =4; Status: F Test Note: ; DIAGNOSIS CRITERIA MMB ng/ml Relative Index (RI) NON-AMI < or = 5 N/A JAY ZONE > 5 < or = 4 AMI > 5 > 4 Lab Order: Troponin; [facility]' 06/07/16 17:59 Test: TROPONIN I; Value: < 0.02; Range: < 0.10; Units: NG/ML; Status: F Test Note: ; Troponin I Reference Interval for [employer] LOCI: 99th Percentile= 0.00-0.045 ng/ml Risk Stratification: <= 0.10 ng/ml Decreased Risk for Adverse Clinical Events. 0.10-1.50 ng/ml Increased Risk for Adverse Clinical Events. Evaluation of additional criterion and/or repeat testing in 2-6 hours is suggested to rule out myocardial damage. >= 1.50 ng/ml Indicative of Myocardial Injury. Lab Order: PT/INR; [facility]' 06/07/16 17:59 Test: PROTHROMBIN TIME; Value: 13.4; Range: 12.3-14.5; Units: SECONDS; Status: F Test: INR; Value: 1.01; Status: F Test Note: ; THERAPUTIC HUMAN INR VALUES INDICATIONS NORMAL RANGES PROPHYLAXIS/TREATMENT OF: VENOUS THROMBOSIS 2.0-3.0 PULMONARY EMBOLISM 2.0-3.0 PREVENTION OF SYSTEMIC EMBOLISM FROM: TISSUE HEART VALVES 2.0-3.0 ACUTE MYOCARDIAL INFARCTION 2.0-3.0 VALVULAR HEART DISEASE 2.0-3.0 ATRIAL FIBRILLATION 2.0-3.0 MECHANICAL VALVES(HIGH RISK) 2.5-3.5 RECURRENT MYOCARDIAL INFARCTION 2.5-3.5 Lab Order: DEPAKOTE; SPEC'M 06/07/16 17:59 Test: VALPROIC ACID (DEPAKOTE); Value: 45.0; Range: 50.0-100.0; Abnormal: Below low normal; Units: UG/ML; Status: F Lab Order: GATS (NEGATIVE STREP SCREEN); SPEC'M 06/07/16 17:59 Test: GATS CULTURE (NEG STREP SCR); Value: GATS RESULT NEGATIVE FOR STREP PYOGENES (GROUP A); Status: F Test: GATS CULTURE (NEG STREP SCR); Value: <EXTERNAL COMMENT eCWMed> FULL REPORT IN LAB NOTES (eCW and Medent).; Status: F Radiology Order: Chest, 1 View Test: Chest, 1 View REASON FOR EXAMINATION: Chest Pain; Portable chest, single AP view, 06:11 p.m.:; ; Comparison is the PA and lateral chest of 10/11/2013.; ; Lung melo are clear. 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 shahla 19:27 Discharge Assessment: Patient awake, alert and oriented x 3. No cognitive and/or tm5 functional deficits noted. Patient verbalized understanding of disposition instructions. patient administered narcotics - no. The following High Risk Discharge criteria are identified: None. Discharged to home ambulatory, with significant other. Condition: good Condition: stable Condition: improved. Discharge instructions given to patient, Instructed on discharge instructions, follow up and referral plans. medication usage, Demonstrated understanding of instructions, medications, Pt was receptive of discharge instructions/ teaching. Prescriptions given X 1. No special radiology studies were completed. Property :Personal belongings accompany Pt. 19:28 Patient left the ED. tm5 Signatures: Dispatcher MedHost EDKanchan Ma, RN RN Candida Jewell, RN RN [facility] Dominique Cyr, Reg Reg Ortega Malagon, CATALYST CONCENTRATION OPERATOR CATALYST CONCENTRATION OPERATOR Trinity Nesbitt, MINH RANCH HELPER Kindra Forbes, RN RN mk4 Alice Adams,RN RN tm5 Chart Complete [facility]
--- NOTE | 2016-06-10 08:49 | ECGEPIP ---
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
== END 2016-06-07 19:28 | disposition home or self-care (01) ==
LOC: M ED 17:05
DX: K21.0 Gastro-esophageal reflux disease with esophagitis (principal); R07.89 Other chest pain; E78.00 Pure hypercholesterolemia, unspecified; I10 Essential (primary) hypertension; M10.9 Gout, unspecified; Z87.891 Personal history of nicotine dependence; Z79.82 Long term (current) use of aspirin; Z79.899 Other long term (current) drug therapy

== ENCOUNTER 2016-06-22 18:50 | Emergency (ER) | payer MEDICARE ==
[2016-06-22 20:16] LABS: HCT SOURCE LFT KNEE; SYNOVIAL FLUID COLOR RED (YELLOW)
[2016-06-22 20:17] LABS: BASO % 0.5 % (0.0-1.0); EOS # 0.2 K/mm3 (0.0-0.50); EOS % 2.2 % (0.0-3.0); LARGE UNSTAINED CELL # 0.1 K/mm3 (0.0-0.4); LARGE UNSTAINED CELL % 1.5 % (0.0-4.0); LYMPH % 25.7 % (24.0-44.0); MEAN CORPUSCULAR HEMOGLOBIN 30.1 pg (27.0-33.0); MEAN CORPUSCULAR HGB CONC 33.3 g/dl (32.0-36.5); MEAN CORPUSCULAR VOLUME 90.4 fl (80.0-96.0); MONO # 0.6 K/mm3 (0.0-0.8); MONO % 8.1 % (0.0-5.0); NEUTROPHILS # 4.7 K/mm3 (1.8-7.7); NEUTROPHILS % 62.1 % (36.0-66.0); PLATELET COUNT, AUTOMATED 320 k/mm3 (150-450); RED CELL DISTRIBUTION WIDTH 13.2 % (11.5-14.5); WHITE BLOOD COUNT 7.5 K/mm3 (4.0-10.0)
[2016-06-22 20:41] LABS: ERYTHROCYTE SEDIMENTATION RATE 68 mm/hr (0-20)
[2016-06-22 20:43] LABS: ALBUMIN 2.9 GM/DL (3.2-5.2); ALBUMIN/GLOBULIN RATIO 0.57 (1.00-1.93); ALKALINE PHOSPHATASE 120 U/L (45-117); ALT/SGPT 16 U/L (12-78); ANION GAP 4 MEQ/L (8-16); AST/SGOT 20 U/L (15-37); BILIRUBIN,TOTAL 0.2 MG/DL (0.2-1.0); BLOOD UREA NITROGEN 19 MG/DL (7-18); CALCIUM LEVEL 8.2 MG/DL (8.8-10.2); CARBON DIOXIDE LEVEL 34 MEQ/L (21-32); CHLORIDE LEVEL 101 MEQ/L (98-107); CREATININE FOR GFR 1.02 MG/DL (0.70-1.30); GLOMERULAR FILTRATION RATE > 60.0 (>42); GLUCOSE, FASTING 107 MG/DL (83-110); POTASSIUM SERUM 4.7 MEQ/L (3.5-5.1); SODIUM LEVEL 139 MEQ/L (136-145)
--- NOTE | 2016-06-22 20:55 | EDDOCDS ---
Nurse's Notes [facility] Name: Mario Gambino Age: 76 yrs Sex: Male : 1940 Arrival Date: 06/22/2016 Time: 18:50 Bed TR7 Private MD: Jeffrey Aragon Diagnosis: Prepatellar bursitis, left knee Presentation: 06/22 18:54 Presenting complaint: Patient states: that he has pain in her L knee and is concerned ms18 about some redness. PT has a large bump under his L knee that he states has been there since he was young due to an injury. Adult Sepsis Screening: The patient does not have new or worsening altered mentation. Patient's respiratory rate is less than 22. Systolic blood pressure is greater than 100. Patient has a qSOFA score of 0- Negative Sepsis Screen. Suicide/Homicide risk assessment- the patient denies having any suicidal and/or homicidal ideations and does not present with any other emotional, behavioral or mental health complaints. Status: Patient is not a customer service rep or dependent. Transition of care: patient was not received from another setting of care. 18:54 Acuity: LYNNE Level 4 ms18 18:54 Method Of Arrival: Walkin/Carried/Asstd ms18 Triage Assessment: 18:59 General: Appears in no apparent distress, comfortable, Behavior is appropriate for age, ms18 cooperative. Pain: Denies pain. Location: left knee Aggravated by increased activity. Neurological: No deficits noted. Respiratory: No deficits noted. Derm: Skin is intact, Skin is pink, warm & dry. normal. Historical: - Allergies: no known allergies; - Home Meds: 1. allopurinol 100 mg Oral tab HS 2. aspirin 81 mg Oral tab 1 tab once daily 3. atorvastatin 80 mg oral tab 1 tab once daily 4. captopril 12.5 mg Oral tab 1 tab daily 5. Depakote 500 mg Oral TbEC 2 times per day 6. [place] [address] unit weekly - PMHx: Gout; Hypercholesterolemia; Hypertension; - PSHx: CABG; valve replacement; - Social history: Smoking status: Patient states former smoker of tobacco. No barriers to communication noted, The patient speaks fluent Nigerian. - Family history: Not pertinent. - : The pt / caregiver states he / she is not on anticoagulants. Home medication list is obtained from the patient. - Exposure Risk Screening:: None identified. Screenin:52 Screening information is obtained from the patient. Fall risk: No risks identified. jmb Assistance ADL's: requires no assistance with activities of daily living. Abuse/DV Screen: The patient / caregiver reports he/she is: not in a situation that causes fear, pain or injury. Nutritional screening: No deficits noted. Advance Directives: Currently, there is no health care proxy. There is no active DNR order. There is no living will. There is no Power of Perishable Freight Inspector. home support is adequate. Assessment: 20:52 General: Patient instructed on discharged instructions. Patient asked if there were any b questions regarding discharge, patient stated no. Patient signed discharge instructions. Patient discharged in stable condition. . Vital Signs: 18:52 BP 136 / 81; Pulse 63; Resp 18 S; Temp 97.2(O); Pulse Ox 96% on R/A; Weight 92.99 kg gr2 (R); Height 6 ft. 0 in. (182.88 cm) (R); Pain 6/10; 20:52 BP 130 / 60; Pulse 77; Resp 18; Temp 98.5(O); Pulse Ox 97% on R/A; Pain 0/10; jmb 18:52 Body Mass Index 27.80 (92.99 kg, 182.88 cm) gr2 Vitals: 18:52 Log In Time: June 22, 2016 at 18:52. gr2 ED Course: 18:51 Patient visited by Aleksandra Elise. gr2 18:51 Jeffrey Aragon is Private Physician. gr2 18:51 Patient moved to Waiting gr2 18:53 Patient visited by Aleksandra Elise. gr2 18:54 Patient moved to Pre RCE gr2 18:57 Triage Initiated ms18 19:14 Patient moved to Triage 2 mdr 19:15 Tiago Hamilton PA is PHCP. btw 19:15 Elvin Arevalo DO is Attending Physician. btw 19:15 Patient visited by Tiago Hamilton PA. btw 19:38 [facility] Payment Agreement was scanned into [employer] and attached to record. gb 19:53 [facility] btw 20:03 Patient moved to TR7 jmb 20:03 Synovial Fluid Cell Count Sent. jmb 20:03 CRP Sent. jmb 20:03 ESR Sent. jmb 20:03 Complete Comphrensive Metabolic Sent. jmb 20:03 CBC with Diff Sent. jmb 20:52 The patient / caregiver is instructed regarding the plan of care and ED course. jmb 20:52 No IV's were initiated during this patient's visit. No procedures done that require jmb assistance. Order Results: Lab Order: CBC with Diff; SPEC'M 06/22/16 20:01 Test: WHITE BLOOD COUNT; Value: 7.5; Range: 4.0-10.0; Units: K/mm3; Status: F Test: RED BLOOD COUNT; Value: 3.97; Range: 4.30-6.10; Abnormal: Below low normal; Units: M/mm3; Status: F Test: HEMOGLOBIN; Value: 12.0; Range: 14.0-18.0; Abnormal: Below low normal; Units: g/dl; Status: F Test: HEMATOCRIT; Value: 35.9; Range: 42.0-52.0; Abnormal: Below low normal; Units: %; Status: F Test: MEAN CORPUSCULAR VOLUME; Value: 90.4; Range: 80.0-96.0; Units: fl; Status: F Test: MEAN CORPUSCULAR HEMOGLOBIN; Value: 30.1; Range: 27.0-33.0; Units: pg; Status: F Test: MEAN CORPUSCULAR HGB CONC; Value: 33.3; Range: 32.0-36.5; Units: g/dl; Status: F Test: RED CELL DISTRIBUTION WIDTH; Value: 13.2; Range: 11.5-14.5; Units: %; Status: F Test: PLATELET COUNT, AUTOMATED; Value: 320; Range: 150-450; Units: k/mm3; Status: F Test: NEUTROPHILS %; Value: 62.1; Range: 36.0-66.0; Units: %; Status: F Test: LYMPH %; Value: 25.7; Range: 24.0-44.0; Units: %; Status: F Test: MONO %; Value: 8.1; Range: 0.0-5.0; Abnormal: Above high normal; Units: %; Status: F Test: EOS %; Value: 2.2; Range: 0.0-3.0; Units: %; Status: F Test: BASO %; Value: 0.5; Range: 0.0-1.0; Units: %; Status: F Test: LARGE UNSTAINED CELL %; Value: 1.5; Range: 0.0-4.0; Units: %; Status: F Test: NEUTROPHILS #; Value: 4.7; Range: 1.8-7.7; Units: K/mm3; Status: F Test: LYMPH #; Value: 2.0; Range: 1.5-4.5; Units: K/mm3; Status: F Test: MONO #; Value: 0.6; Range: 0.0-0.8; Units: K/mm3; Status: F Test: EOS #; Value: 0.2; Range: 0.0-0.50; Units: K/mm3; Status: F Test: BASO #; Value: 0.0; Range: 0.0-0.2; Units: K/mm3; Status: F Test: LARGE UNSTAINED CELL #; Value: 0.1; Range: 0.0-0.4; Units: K/mm3; Status: F Lab Order: Complete Comphrensive Metabolic; SPEC'M 06/22/16 20:01 Test: GLUCOSE, FASTING; Value: 107; Range: 83-110; Units: MG/DL; Status: F Test: BLOOD UREA NITROGEN; Value: 19; Range: 7-18; Abnormal: Above high normal; Units: MG/DL; Status: F Test: CREATININE FOR GFR; Value: 1.02; Range: 0.70-1.30; Units: MG/DL; Status: F Test: GLOMERULAR FILTRATION RATE; Value: > 60.0; Range: >42; Status: F Test: SODIUM LEVEL; Value: 139; Range: 136-145; Units: MEQ/L; Status: F Test: POTASSIUM SERUM; Value: 4.7; Range: 3.5-5.1; Units: MEQ/L; Status: F Test: CHLORIDE LEVEL; Value: 101; Range: 98-107; Units: MEQ/L; Status: F Test: CARBON DIOXIDE LEVEL; Value: 34; Range: 21-32; Abnormal: Above high normal; Units: MEQ/L; Status: F Test: ANION GAP; Value: 4; Range: 8-16; Abnormal: Below low normal; Units: MEQ/L; Status: F Test: CALCIUM LEVEL; Value: 8.2; Range: 8.8-10.2; Abnormal: Below low normal; Units: MG/DL; Status: F Test: AST/SGOT; Value: 20; Range: 15-37; Units: U/L; Status: F Test: ALT/SGPT; Value: 16; Range: 12-78; Units: U/L; Status: F Test: ALKALINE PHOSPHATASE; Value: 120; Range: 45-117; Abnormal: Above high normal; Units: U/L; Status: F Test: BILIRUBIN,TOTAL; Value: 0.2; Range: 0.2-1.0; Units: MG/DL; Status: F Test: TOTAL PROTEIN; Value: 8.0; Range: 6.4-8.2; Units: GM/DL; Status: F Test: ALBUMIN; Value: 2.9; Range: 3.2-5.2; Abnormal: Below low normal; Units: GM/DL; Status: F Test: ALBUMIN/GLOBULIN RATIO; Value: 0.57; Range: 1.00-1.93; Abnormal: Below low normal; Status: F Test Note: ; Units are mL/min/1.73 m2 Chronic Kidney Disease Staging per NKF: Stage I & II GFR >=60 Normal to Mildly Decreased Stage III GFR 30-59 Moderately Decreased Stage IV GFR 15-29 Severely Decreased Stage V GFR <15 Very Little GFR Left ESRD GFR <15 on PIZZA [employer]ER Lab Order: ESR; SPEC'06/22/16 20:01 Test: ERYTHROCYTE SEDIMENTATION RATE; Value: 68; Range: 0-20; Abnormal: Above high normal; Units: mm/hr; Status: F Lab Order: CRP; SPEC'06/22/16 20:01 Test: C REACTIVE PROTEIN QUANTITATIV; Value: 6.33; Range: 0.00-0.30; Abnormal: Above high normal; Units: MG/DL; Status: F Lab Order: Synovial Fluid Cell Count; SPEC'06/22/16 20:01 Test: SOURCE, BODY FLUID; Value: LFT KNEE; Status: F Test: SYNOVIAL FLUID COLOR; Value: RED; Range: YELLOW; Status: F Test: APPEARANCE, BODY FLUID; Value: CLOTTED; Range: CLEAR; Status: F Test: WBC CALC. BF; Value: TNP; Range: 0-20; Units: cells/uL; Status: F Test: HEMATOCRIT, BODY FLUID; Value: TNP; Units: %; Status: F Test: HCT SOURCE; Value: LFT KNEE; Status: F Test: RBC CALC. BF; Value: TNP; Range: < 10mm3 cells/uL; Status: F Test Note: ; UNABLE TO PERFORM COUNT, FLUID CLOTTED AND QNS. Outcome: 19:54 Discharge ordered by Provider. btw 20:52 Discharge Assessment: Patient awake, alert and oriented x 3. No cognitive and/or jmb functional deficits noted. Patient verbalized understanding of disposition instructions. Patient awake and alert. obeys commands, Oriented to person, place and time. Patient verbalized understanding of disposition instructions. Patient has no functional deficits. patient administered narcotics - no. The following High Risk Discharge criteria are identified: None. Discharged to home ambulatory. Condition: stable Condition: improved. Discharge instructions given to patient, Instructed on discharge instructions, follow up and referral plans. Demonstrated understanding of instructions, Pt was receptive of discharge instructions/ teaching. No special radiology studies were completed. Property sent home with patient. 20:54 Patient left the ED. avila Signatures: Dominique Cyr, Reg Reg gb Tiago Hamilton PA PA btw Aleksandra Elise gr2 Aris GriggsRN Nurys Nguyen RN RN ms18 Marito Diop PCA AUTOMOTIVE REPAIR TECHNICIAN mdr MTDD
--- NOTE | 2016-06-22 20:55 | EDDOCDS ---
Physician Documentation [facility] Name: Mario Gambino Age: 76 yrs Sex: Male : 1940 Arrival Date: 06/22/2016 Time: 18:50 Bed TR7 Private MD: Jeffrey Aragon Disposition: 06/22/16 19:54 Discharged to Home/Self Care. Impression: Prepatellar bursitis, left knee. - Condition is Stable. - Discharge Instructions: Bursitis, Cellulitis, [id number]. - Prescriptions for Clindamycin HCl 300 mg Oral Capsule - take 1 capsule by ORAL route every 6 hours; 40 capsule. - Medication Reconciliation, Local Pharmacy Hours form. - Follow up: Orthopaedics, [facility]; When: Tomorrow; Reason: Further diagnostic work-up, Recheck today's complaints, Continuance of care. - Problem is new. - Symptoms are unchanged. Historical: - Allergies: no known allergies; - Home Meds: 1. allopurinol 100 mg Oral tab HS 2. aspirin 81 mg Oral tab 1 tab once daily 3. atorvastatin 80 mg oral tab 1 tab once daily 4. captopril 12.5 mg Oral tab 1 tab daily 5. Depakote 500 mg Oral TbEC 2 times per day 6. Vitamin [place] 93547 unit weekly - PMHx: Gout; Hypercholesterolemia; Hypertension; - PSHx: CABG; valve replacement; - Social history: Smoking status: Patient states former smoker of tobacco. No barriers to communication noted, The patient speaks fluent Frisian. - Family history: Not pertinent. - : The pt / caregiver states he / she is not on anticoagulants. Home medication list is obtained from the patient. - Exposure Risk Screening:: None identified. Vital Signs: 06/22 18:52 BP 136 / 81; Pulse 63; Resp 18 S; Temp 97.2(O); Pulse Ox 96% on R/A; Weight 92.99 kg / gr2 205.01 lbs (R); Height 6 ft. 0 in. (182.88 cm) (R); Pain 6/10; 20:52 BP 130 / 60; Pulse 77; Resp 18; Temp 98.5(O); Pulse Ox 97% on R/A; Pain 0/10; jmb 18:52 Body Mass Index 27.80 (92.99 kg, 182.88 cm) gr2 Procedures: 19:55 Joint aspiration: Aspiration of left knee using 18 gauge needle, Removed 2.5 ml's of btw clear fluid, bloody fluid, Dressed with band aid, Patient tolerated well. MDM: 19:31 Financial registration complete. gb 19:38 [facility] Payment Agreement was scanned into [employer] and attached to record. gb 19:51 CBC with Diff Ordered. EDMS 19:51 Complete Comphrensive Metabolic Ordered. EDMS 19:51 ESR Ordered. EDMS 19:51 CRP Ordered. EDMS 19:51 Synovial Fluid Cell Count Ordered. EDMS 20:51 CBC with Diff Reviewed. btw 20:51 Complete Comphrensive Metabolic Reviewed. btw 20:51 ESR Reviewed. btw 20:51 CRP Reviewed. btw 20:51 Synovial Fluid Cell Count Reviewed. btw Signatures: Dispatcher [employer] EDMS Dominique Cyr, Reg Reg gb Tiago Hamilton PA PA btw Aris GriggsRN RN Nurys Castañeda RN RN ms18 The chart was reviewed and I authenticate all verbal orders and agree with the evaluation and treatment provided.Corrections: (The following items were deleted from the chart) 19:53 19:51 WOUND CULTURE+CHYNA ordered. EDMS EDMS Attachments: 19:38 [facility] Payment Agreement MTDD
[2016-06-22 21:39] LABS: BF DIFF IF INDICATED? YES (NO)
[2016-06-22 21:55] LABS: CC BF DIFF EXAM UNSPUN
--- NOTE | 2016-06-24 21:55 | EDDOCDS ---
Physician Documentation [facility] Name: Mario Gambino Age: 76 yrs Sex: Male : 1940 Arrival Date: 06/22/2016 Time: 18:50 Bed TR7 Private MD: Jeffrey Aragon Disposition: 06/22/16 19:54 Discharged to Home/Self Care. Impression: Prepatellar bursitis, left knee. - Condition is Stable. - Discharge Instructions: Bursitis, Cellulitis, [id number]. - Prescriptions for Clindamycin HCl 300 mg Oral Capsule - take 1 capsule by ORAL route every 6 hours; 40 capsule. - Medication Reconciliation, Local Pharmacy Hours form. - Follow up: Orthopaedics, [facility]; When: Tomorrow; Reason: Further diagnostic work-up, Recheck today's complaints, Continuance of care. - Problem is new. - Symptoms are unchanged. Historical: - Allergies: no known allergies; - Home Meds: 1. allopurinol 100 mg Oral tab HS 2. aspirin 81 mg Oral tab 1 tab once daily 3. atorvastatin 80 mg oral tab 1 tab once daily 4. captopril 12.5 mg Oral tab 1 tab daily 5. Depakote 500 mg Oral TbEC 2 times per day 6. Vitamin [place] [address]84 unit weekly - PMHx: Gout; Hypercholesterolemia; Hypertension; - PSHx: CABG; valve replacement; - Social history: Smoking status: Patient states former smoker of tobacco. No barriers to communication noted, The patient speaks fluent Thai. - Family history: Not pertinent. - : The pt / caregiver states he / she is not on anticoagulants. Home medication list is obtained from the patient. - Exposure Risk Screening:: None identified. Vital Signs: 06/22 18:52 BP 136 / 81; Pulse 63; Resp 18 S; Temp 97.2(O); Pulse Ox 96% on R/A; Weight 92.99 kg / gr2 205.01 lbs (R); Height 6 ft. 0 in. (182.88 cm) (R); Pain 6/10; 20:52 BP 130 / 60; Pulse 77; Resp 18; Temp 98.5(O); Pulse Ox 97% on R/A; Pain 0/10; jmb 18:52 Body Mass Index 27.80 (92.99 kg, 182.88 cm) gr2 Procedures: 19:55 Joint aspiration: Aspiration of left knee using 18 gauge needle, Removed 2.5 ml's of btw clear fluid, bloody fluid, Dressed with band aid, Patient tolerated well. MDM: 19:31 Financial registration complete. gb 19:38 [facility] Payment Agreement was scanned into [employer] and attached to record. gb 19:51 CBC with Diff Ordered. EDMS 19:51 Complete Comphrensive Metabolic Ordered. EDMS 19:51 ESR Ordered. EDMS 19:51 CRP Ordered. EDMS 19:51 Synovial Fluid Cell Count Ordered. EDMS 20:51 CBC with Diff Reviewed. btw 20:51 Complete Comphrensive Metabolic Reviewed. btw 20:51 ESR Reviewed. btw 20:51 CRP Reviewed. btw 20:51 Synovial Fluid Cell Count Reviewed. bt 06/23 10:08 T-Sheet-- Draft Copy was scanned into [employer] and attached to record. gb Signatures: Dispatcher [employer] EDMS Dominique Cyr, Reg Reg Tiago Hamilton PA PA btAris Munguia,RN RN Nurys CastañedaRN RN ms18 The chart was reviewed and I authenticate all verbal orders and agree with the evaluation and treatment provided.Corrections: (The following items were deleted from the chart) 06/22 19:53 19:51 WOUND CULTURE+CHYNA ordered. EDMS EDMS Attachments: 19:38 [facility] Payment Agreement 06/23 10:08 T-Sheet-- Draft Copy gb Chart Complete MTDD
--- NOTE | 2016-06-24 21:55 | EDDOCDS ---
Physician Documentation [facility] Name: Mario Gambino Age: 76 yrs Sex: Male : 1940 Arrival Date: 06/22/2016 Time: 18:50 Bed TR7 Private MD: Jeffrey Aragon Disposition: 06/22/16 19:54 Discharged to Home/Self Care. Impression: Prepatellar bursitis, left knee. - Condition is Stable. - Discharge Instructions: Bursitis, Cellulitis, [id number]. - Prescriptions for Clindamycin HCl 300 mg Oral Capsule - take 1 capsule by ORAL route every 6 hours; 40 capsule. - Medication Reconciliation, Local Pharmacy Hours form. - Follow up: Orthopaedics, [facility]; When: Tomorrow; Reason: Further diagnostic work-up, Recheck today's complaints, Continuance of care. - Problem is new. - Symptoms are unchanged. Historical: - Allergies: no known allergies; - Home Meds: 1. allopurinol 100 mg Oral tab HS 2. aspirin 81 mg Oral tab 1 tab once daily 3. atorvastatin 80 mg oral tab 1 tab once daily 4. captopril 12.5 mg Oral tab 1 tab daily 5. Depakote 500 mg Oral TbEC 2 times per day 6. Vitamin [place] [address]50 unit weekly - PMHx: Gout; Hypercholesterolemia; Hypertension; - PSHx: CABG; valve replacement; - Social history: Smoking status: Patient states former smoker of tobacco. No barriers to communication noted, The patient speaks fluent Yi. - Family history: Not pertinent. - : The pt / caregiver states he / she is not on anticoagulants. Home medication list is obtained from the patient. - Exposure Risk Screening:: None identified. Vital Signs: 06/22 18:52 BP 136 / 81; Pulse 63; Resp 18 S; Temp 97.2(O); Pulse Ox 96% on R/A; Weight 92.99 kg / gr2 205.01 lbs (R); Height 6 ft. 0 in. (182.88 cm) (R); Pain 6/10; 20:52 BP 130 / 60; Pulse 77; Resp 18; Temp 98.5(O); Pulse Ox 97% on R/A; Pain 0/10; jmb 18:52 Body Mass Index 27.80 (92.99 kg, 182.88 cm) gr2 Procedures: 19:55 Joint aspiration: Aspiration of left knee using 18 gauge needle, Removed 2.5 ml's of btw clear fluid, bloody fluid, Dressed with band aid, Patient tolerated well. MDM: 19:31 Financial registration complete. gb 19:38 [facility] Payment Agreement was scanned into [employer] and attached to record. gb 19:51 CBC with Diff Ordered. EDMS 19:51 Complete Comphrensive Metabolic Ordered. EDMS 19:51 ESR Ordered. EDMS 19:51 CRP Ordered. EDMS 19:51 Synovial Fluid Cell Count Ordered. EDMS 20:51 CBC with Diff Reviewed. btw 20:51 Complete Comphrensive Metabolic Reviewed. btw 20:51 ESR Reviewed. btw 20:51 CRP Reviewed. btw 20:51 Synovial Fluid Cell Count Reviewed. bt 06/23 10:08 T-Sheet-- Draft Copy was scanned into [employer] and attached to record. gb Signatures: Dispatcher [employer] EDMS Dominique Cyr, Reg Reg Tiago Hamilton PA PA btAris Munguia,RN RN Nurys CastañedaRN RN ms18 The chart was reviewed and I authenticate all verbal orders and agree with the evaluation and treatment provided.Corrections: (The following items were deleted from the chart) 06/22 19:53 19:51 WOUND CULTURE+CHYNA ordered. EDMS EDMS Attachments: 19:38 [facility] Payment Agreement 06/23 10:08 T-Sheet-- Draft Copy gb Chart Complete MTDD
--- NOTE | 2016-06-24 21:55 | EDDOCDS ---
Nurse's Notes [facility] Name: Mario Gambino Age: 76 yrs Sex: Male : 1940 Arrival Date: 06/22/2016 Time: 18:50 Bed TR7 Private MD: Jeffrey Aragon Diagnosis: Prepatellar bursitis, left knee Presentation: 06/22 18:54 Presenting complaint: Patient states: that he has pain in her L knee and is concerned ms18 about some redness. PT has a large bump under his L knee that he states has been there since he was young due to an injury. Adult Sepsis Screening: The patient does not have new or worsening altered mentation. Patient's respiratory rate is less than 22. Systolic blood pressure is greater than 100. Patient has a qSOFA score of 0- Negative Sepsis Screen. Suicide/Homicide risk assessment- the patient denies having any suicidal and/or homicidal ideations and does not present with any other emotional, behavioral or mental health complaints. 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 Transition of care: patient was not received from another setting of care. 18:54 Acuity: LYNNE Level 4 ms18 18:54 Method Of Arrival: Walkin/Carried/Asstd ms18 Triage Assessment: 18:59 General: Appears in no apparent distress, comfortable, Behavior is appropriate for age, ms18 cooperative. Pain: Denies pain. Location: left knee Aggravated by increased activity. Neurological: No deficits noted. Respiratory: No deficits noted. Derm: Skin is intact, Skin is pink, warm & dry. normal. Historical: - Allergies: no known allergies; - Home Meds: 1. allopurinol 100 mg Oral tab HS 2. aspirin 81 mg Oral tab 1 tab once daily 3. atorvastatin 80 mg oral tab 1 tab once daily 4. captopril 12.5 mg Oral tab 1 tab daily 5. Depakote 500 mg Oral TbEC 2 times per day 6. Vitamin [place] [address] unit weekly - PMHx: Gout; Hypercholesterolemia; Hypertension; - PSHx: CABG; valve replacement; - Social history: Smoking status: Patient states former smoker of tobacco. No barriers to communication noted, The patient speaks fluent Afghan. - Family history: Not pertinent. - : The pt / caregiver states he / she is not on anticoagulants. Home medication list is obtained from the patient. - Exposure Risk Screening:: None identified. Screenin:52 Screening information is obtained from the patient. Fall risk: No risks identified. jmb Assistance ADL's: requires no assistance with activities of daily living. Abuse/DV Screen: The patient / caregiver reports he/she is: not in a situation that causes fear, pain or injury. Nutritional screening: No deficits noted. Advance Directives: Currently, there is no health care proxy. There is no active DNR order. There is no living will. There is no Power of Design Maker. home support is adequate. Assessment: 20:52 General: Patient instructed on discharged instructions. Patient asked if there were any b questions regarding discharge, patient stated no. Patient signed discharge instructions. Patient discharged in stable condition. . Vital Signs: 18:52 BP 136 / 81; Pulse 63; Resp 18 S; Temp 97.2(O); Pulse Ox 96% on R/A; Weight 92.99 kg gr2 (R); Height 6 ft. 0 in. (182.88 cm) (R); Pain 6/10; 20:52 BP 130 / 60; Pulse 77; Resp 18; Temp 98.5(O); Pulse Ox 97% on R/A; Pain 0/10; jmb 18:52 Body Mass Index 27.80 (92.99 kg, 182.88 cm) gr2 Vitals: 18:52 Log In Time: June 22, 2016 at 18:52. gr2 ED Course: 18:51 Patient visited by Aleksandra Elise. gr2 18:51 Jeffrey Aragon is Private Physician. gr2 18:51 Patient moved to Waiting gr2 18:53 Patient visited by Aleksandra Elise. gr2 18:54 Patient moved to Pre RCE gr2 18:57 Triage Initiated ms18 19:14 Patient moved to Triage 2 mdr 19:15 Tiago Hamilton PA is PHCP. btw 19:15 Elvin Arevalo DO is Attending Physician. btw 19:15 Patient visited by Tiago Hamilton PA. btw 19:38 [facility] Payment Agreement was scanned into [employer] and attached to record. gb 19:53 [facility]. btw 20:03 Patient moved to TR7 jmb 20:03 Synovial Fluid Cell Count Sent. jmb 20:03 CRP Sent. jmb 20:03 ESR Sent. jmb 20:03 Complete Comphrensive Metabolic Sent. jmb 20:03 CBC with Diff Sent. jmb 20:52 The patient / caregiver is instructed regarding the plan of care and ED course. jmb 20:52 No IV's were initiated during this patient's visit. No procedures done that require jmb assistance. 06/23 10:08 T-Sheet-- Draft Copy was scanned into [employer] and attached to record. gb Order Results: Lab Order: CBC with Diff; SPEC'M 06/22/16 20:01 Test: WHITE BLOOD COUNT; Value: 7.5; Range: 4.0-10.0; Units: K/mm3; Status: F Test: RED BLOOD COUNT; Value: 3.97; Range: 4.30-6.10; Abnormal: Below low normal; Units: M/mm3; Status: F Test: HEMOGLOBIN; Value: 12.0; Range: 14.0-18.0; Abnormal: Below low normal; Units: g/dl; Status: F Test: HEMATOCRIT; Value: 35.9; Range: 42.0-52.0; Abnormal: Below low normal; Units: %; Status: F Test: MEAN CORPUSCULAR VOLUME; Value: 90.4; Range: 80.0-96.0; Units: fl; Status: F Test: MEAN CORPUSCULAR HEMOGLOBIN; Value: 30.1; Range: 27.0-33.0; Units: pg; Status: F Test: MEAN CORPUSCULAR HGB CONC; Value: 33.3; Range: 32.0-36.5; Units: g/dl; Status: F Test: RED CELL DISTRIBUTION WIDTH; Value: 13.2; Range: 11.5-14.5; Units: %; Status: F Test: PLATELET COUNT, AUTOMATED; Value: 320; Range: 150-450; Units: k/mm3; Status: F Test: NEUTROPHILS %; Value: 62.1; Range: 36.0-66.0; Units: %; Status: F Test: LYMPH %; Value: 25.7; Range: 24.0-44.0; Units: %; Status: F Test: MONO %; Value: 8.1; Range: 0.0-5.0; Abnormal: Above high normal; Units: %; Status: F Test: EOS %; Value: 2.2; Range: 0.0-3.0; Units: %; Status: F Test: BASO %; Value: 0.5; Range: 0.0-1.0; Units: %; Status: F Test: LARGE UNSTAINED CELL %; Value: 1.5; Range: 0.0-4.0; Units: %; Status: F Test: NEUTROPHILS #; Value: 4.7; Range: 1.8-7.7; Units: K/mm3; Status: F Test: LYMPH #; Value: 2.0; Range: 1.5-4.5; Units: K/mm3; Status: F Test: MONO #; Value: 0.6; Range: 0.0-0.8; Units: K/mm3; Status: F Test: EOS #; Value: 0.2; Range: 0.0-0.50; Units: K/mm3; Status: F Test: BASO #; Value: 0.0; Range: 0.0-0.2; Units: K/mm3; Status: F Test: LARGE UNSTAINED CELL #; Value: 0.1; Range: 0.0-0.4; Units: K/mm3; Status: F Lab Order: Complete Comphrensive Metabolic; SPEC'M 06/22/16 20:01 Test: GLUCOSE, FASTING; Value: 107; Range: 83-110; Units: MG/DL; Status: F Test: BLOOD UREA NITROGEN; Value: 19; Range: 7-18; Abnormal: Above high normal; Units: MG/DL; Status: F Test: CREATININE FOR GFR; Value: 1.02; Range: 0.70-1.30; Units: MG/DL; Status: F Test: GLOMERULAR FILTRATION RATE; Value: > 60.0; Range: >42; Status: F Test: SODIUM LEVEL; Value: 139; Range: 136-145; Units: MEQ/L; Status: F Test: POTASSIUM SERUM; Value: 4.7; Range: 3.5-5.1; Units: MEQ/L; Status: F Test: CHLORIDE LEVEL; Value: 101; Range: 98-107; Units: MEQ/L; Status: F Test: CARBON DIOXIDE LEVEL; Value: 34; Range: 21-32; Abnormal: Above high normal; Units: MEQ/L; Status: F Test: ANION GAP; Value: 4; Range: 8-16; Abnormal: Below low normal; Units: MEQ/L; Status: F Test: CALCIUM LEVEL; Value: 8.2; Range: 8.8-10.2; Abnormal: Below low normal; Units: MG/DL; Status: F Test: AST/SGOT; Value: 20; Range: 15-37; Units: U/L; Status: F Test: ALT/SGPT; Value: 16; Range: 12-78; Units: U/L; Status: F Test: ALKALINE PHOSPHATASE; Value: 120; Range: 45-117; Abnormal: Above high normal; Units: U/L; Status: F Test: BILIRUBIN,TOTAL; Value: 0.2; Range: 0.2-1.0; Units: MG/DL; Status: F Test: TOTAL PROTEIN; Value: 8.0; Range: 6.4-8.2; Units: GM/DL; Status: F Test: ALBUMIN; Value: 2.9; Range: 3.2-5.2; Abnormal: Below low normal; Units: GM/DL; Status: F Test: ALBUMIN/GLOBULIN RATIO; Value: 0.57; Range: 1.00-1.93; Abnormal: Below low normal; Status: F Test Note: ; Units are mL/min/1.73 m2 Chronic Kidney Disease Staging per NKF: Stage I & II GFR >=60 Normal to Mildly Decreased Stage III GFR 30-59 Moderately Decreased Stage IV GFR 15-29 Severely Decreased Stage V GFR <15 Very Little GFR Left ESRD GFR <15 on SILK SPOTTER Lab Order: ESR; SPEC'06/22/16 20:01 Test: ERYTHROCYTE SEDIMENTATION RATE; Value: 68; Range: 0-20; Abnormal: Above high normal; Units: mm/hr; Status: F Lab Order: CRP; SPEC06/22/16 20:01 Test: C REACTIVE PROTEIN QUANTITATIV; Value: 6.33; Range: 0.00-0.30; Abnormal: Above high normal; Units: MG/DL; Status: F Lab Order: Synovial Fluid Cell Count; SPEC06/22/16 20: Test: SOURCE, BODY FLUID; Value: LFT KNEE; Status: F Test: SYNOVIAL FLUID COLOR; Value: RED; Range: YELLOW; Status: F Test: APPEARANCE, BODY FLUID; Value: CLOTTED; Range: CLEAR; Status: F Test: WBC CALC. BF; Value: TNP; Range: 0-20; Units: cells/uL; Status: F Test: HEMATOCRIT, BODY FLUID; Value: TNP; Units: %; Status: F Test: HCT SOURCE; Value: LFT KNEE; Status: F Test: RBC CALC. BF; Value: TNP; Range: < 10mm3 cells/uL; Status: F Test Note: ; UNABLE TO PERFORM COUNT, FLUID CLOTTED AND QNS. Test: NEUTROPHILS, BODY FLUID; Value: 93; Units: %; Status: F Test Note: ; DIFF MAYBE INACCURATE DUE TO BLOOD CLOTS IN THE FLUID Test: LYMPHOCYTES, BODY FLUID; Value: 6; Units: %; Status: F Test: BF MONOCYTES/MACROPHAGES; Value: 1; Units: %; Status: F Test Note: ; DIFF MAYBE INACCURATE DUE TO BLOOD CLOTS IN THE FLUID Outcome: 06/22 19:54 Discharge ordered by Provider. btw 20:52 Discharge Assessment: Patient awake, alert and oriented x 3. No cognitive and/or jmb functional deficits noted. Patient verbalized understanding of disposition instructions. Patient awake and alert. obeys commands, Oriented to person, place and time. Patient verbalized understanding of disposition instructions. Patient has no functional deficits. patient administered narcotics - no. The following High Risk Discharge criteria are identified: None. Discharged to home ambulatory. Condition: stable Condition: improved. Discharge instructions given to patient, Instructed on discharge instructions, follow up and referral plans. Demonstrated understanding of instructions, Pt was receptive of discharge instructions/ teaching. No special radiology studies were completed. Property sent home with patient. 20:54 Patient left the ED. jmb Signatures: Dominique Cyr, Reg Reg gb Tigao Hamilton PA PA btw Aleksandra Elise gr2 Aris Griggs,RN RN Nurys Castañeda RN RN ms18 Marito Diop, PIGGERY WORKER PIGGERY WORKER mdr Chart Complete MTDD
== END 2016-06-22 20:54 | disposition home or self-care (01) ==
LOC: M ED 18:50
DX: L03.116 Cellulitis of left lower limb (principal); M70.42 Prepatellar bursitis, left knee; M10.9 Gout, unspecified; E78.00 Pure hypercholesterolemia, unspecified; I10 Essential (primary) hypertension; Z95.1 Presence of aortocoronary bypass graft; Z95.2 Presence of prosthetic heart valve; Z87.891 Personal history of nicotine dependence; Z79.82 Long term (current) use of aspirin; Z79.899 Other long term (current) drug therapy

== ENCOUNTER → 2016-07-07 | Outpatient (REF) | payer MEDICARE ==
[2016-07-07 13:33] LABS: BASO % 0.4 % (0.0-1.0); EOS # 0.2 K/mm3 (0.0-0.50); LARGE UNSTAINED CELL # 0.1 K/mm3 (0.0-0.4); LARGE UNSTAINED CELL % 1.5 % (0.0-4.0); LYMPH # 1.9 K/mm3 (1.5-4.5); MEAN CORPUSCULAR HEMOGLOBIN 30.2 pg (27.0-33.0); MEAN CORPUSCULAR HGB CONC 33.4 g/dl (32.0-36.5); MEAN CORPUSCULAR VOLUME 90.4 fl (80.0-96.0); MONO # 0.5 K/mm3 (0.0-0.8); MONO % 7.5 % (0.0-5.0); NEUTROPHILS # 3.7 K/mm3 (1.8-7.7); NEUTROPHILS % 58.7 % (36.0-66.0); PLATELET COUNT, AUTOMATED 210 k/mm3 (150-450); RED CELL DISTRIBUTION WIDTH 13.7 % (11.5-14.5); WHITE BLOOD COUNT 6.4 K/mm3 (4.0-10.0)
[2016-07-07 15:23] LABS: ERYTHROCYTE SEDIMENTATION RATE 58 mm/hr (0-20)
== END ==
LOC: M LABDRAW1 12:57
PROVIDERS: ATTEND Physician Assistant Surgical
DX: M92.52 Juvenile osteochondrosis of tibia tubercle (principal)

== ENCOUNTER → 2016-07-19 | Outpatient (REF) | payer MEDICARE ==
[2016-07-19 18:44] LABS: BASO % 0.7 % (0.0-1.0); EOS # 0.2 K/mm3 (0.0-0.50); EOS % 3.7 % (0.0-3.0); LARGE UNSTAINED CELL # 0.1 K/mm3 (0.0-0.4); LARGE UNSTAINED CELL % 1.9 % (0.0-4.0); LYMPH # 2.8 K/mm3 (1.5-4.5); MEAN CORPUSCULAR HEMOGLOBIN 30.2 pg (27.0-33.0); MEAN CORPUSCULAR HGB CONC 33.4 g/dl (32.0-36.5); MEAN CORPUSCULAR VOLUME 90.3 fl (80.0-96.0); MONO # 0.4 K/mm3 (0.0-0.8); MONO % 6.2 % (0.0-5.0); NEUTROPHILS # 3.4 K/mm3 (1.8-7.7); NEUTROPHILS % 49.4 % (36.0-66.0); PLATELET COUNT, AUTOMATED 252 k/mm3 (150-450); RED CELL DISTRIBUTION WIDTH 13.7 % (11.5-14.5); WHITE BLOOD COUNT 6.9 K/mm3 (4.0-10.0)
[2016-07-19 19:04] LABS: ERYTHROCYTE SEDIMENTATION RATE 46 mm/hr (0-20)
== END ==
LOC: M LABDRAW1 16:32
PROVIDERS: ATTEND Physician Assistant Surgical
DX: M70.42 Prepatellar bursitis, left knee (principal); Z79.899 Other long term (current) drug therapy

== ENCOUNTER 2016-08-11 13:11 | Emergency (ER) | payer MEDICARE ==
[~2016-08-11] VITALS: Ht 175.3 cm; Wt 93.0 kg
[2016-08-11 13:11] VITALS: BP 130/75
[2016-08-11] MEDS ORDERED: ASPI81CH PO (13:21)
[2016-08-11] MEDS ORDERED: ALLO100T PO (13:32)
[2016-08-11] MEDS ORDERED: DEPA1TAB3 PO (13:32)
[2016-08-11] MEDS ORDERED: OMEP40CA2 PO (13:32)
[2016-08-11] MEDS ORDERED: KEFL500C7 PO (14:02)
[2016-08-11] MEDS ORDERED: PRED20TA PO (14:02)
== END 2016-08-11 14:12 | disposition home or self-care (01) ==
LOC: M ED 14:08
DX: M70.42 Prepatellar bursitis, left knee (principal); K21.9 Gastro-esophageal reflux disease without esophagitis; R56.9 Unspecified convulsions; E78.00 Pure hypercholesterolemia, unspecified; I10 Essential (primary) hypertension; R29.818 Other symptoms and signs involving the nervous system; M79.9 Soft tissue disorder, unspecified; Z79.899 Other long term (current) drug therapy; Z79.82 Long term (current) use of aspirin; Z95.5 Presence of coronary angioplasty implant and graft

== ENCOUNTER 2016-09-25 07:19 | Emergency (ER) | payer MEDICARE ==
[~2016-09-25] VITALS: Ht 175.3 cm; Wt 91.2 kg
[~2016-09-25 07:19] MED LIST changes: +ALLO100T PO; +ASPI81CH PO; +DEPA1TAB3 PO; +KEFL500C7 PO; +OMEP40CA2 PO; +PRED20TA PO
[2016-09-25 07:23] VITALS: BP 130/86
[2016-09-25] MEDS ORDERED: CAPT125TA (07:28)
[2016-09-25] MEDS ORDERED: ATOR1TAB18 (07:28)
[2016-09-25] MEDS ORDERED: DIVA500T3 (07:28)
[2016-09-25] MEDS ORDERED: OMEP20CA3 (07:28)
[2016-09-25] MEDS ORDERED: ALBUTEROL 90 MCG/ACT 8GM HFA INHALER INH ONE (07:45)
[2016-09-25] MEDS ORDERED: GUAISYP4 PO (07:53)
--- NOTE | 2016-09-25 07:58 | REP ---
Clinical: Cough and congestion . Comparison: 06/07/2016 . Technique: PA and lateral. Findings: The mediastinum and cardiac silhouette are stable. Evidence of prior sternotomy, aortic valve repair, and CABG again noted. The lung melo are clear and without acute consolidation, effusion, or pneumothorax. The skeletal structures are intact and normal. Impression: 1. No acute cardiopulmonary process. Signed by Kj De Anda MD 09/25/2016 07:50 A
== END 2016-09-25 08:05 | disposition home or self-care (01) ==
LOC: M ED 07:57
DX: J20.9 Acute bronchitis, unspecified (principal); I10 Essential (primary) hypertension; E78.5 Hyperlipidemia, unspecified; M54.9 Dorsalgia, unspecified; Z87.891 Personal history of nicotine dependence; Z79.899 Other long term (current) drug therapy; Z79.82 Long term (current) use of aspirin

== ENCOUNTER 2016-12-03 02:19 | Emergency (ER) | payer MEDICARE ==
[~2016-12-03 02:19] MED LIST changes: +ATOR80TA59; +CAPT125TA; +DIVA500T3; +GUAISYP4 PO; +KEFL500C17 PO; -KEFL500C7 PO; +OMEP20CA3
[2016-12-03] MEDS ORDERED: LEVALBUTEROL 1.25 MG/0.5 ML CONCENTRATE NEB INH ONE (07:30)
[2016-12-03] MEDS ORDERED: AUGMENTIN 875 MG TAB PO ONE (07:30)
[2016-12-03 08:04] VITALS: BP 139/83
[2016-12-03] MEDS ORDERED: CLAR1TAB2 PO (08:14)
[2016-12-03] MEDS ORDERED: MUCI600T37 PO (08:14)
[2016-12-03] MEDS ORDERED: AUGM875T28 PO (08:14)
--- NOTE | 2016-12-03 08:25 | REP ---
REASON: Cough. COMPARISON: 09/25/2016 There has been previous median sternotomy, status quo. The heart is not enlarged. There is thoracic aortic tortuosity. The lung melo are clear and stable with the exception of mild fibrotic changes, status quo. There are no acute patchy parenchymal opacities or pleural effusions. There is a prostatic aortic valve, status quo. There is no change in the osseous structures. IMPRESSION: Stable chronic changes without evidence of acute cardiopulmonary disease. Signed by Chaitanya Craig DO 12/03/2016 10:37 A
== END 2016-12-03 08:23 | disposition home or self-care (01) ==
LOC: M ED 02:19
DX: J01.90 Acute sinusitis, unspecified (principal); J18.9 Pneumonia, unspecified organism; I10 Essential (primary) hypertension; E78.00 Pure hypercholesterolemia, unspecified; M54.9 Dorsalgia, unspecified; Z95.1 Presence of aortocoronary bypass graft; Z95.2 Presence of prosthetic heart valve; Z79.899 Other long term (current) drug therapy; Z79.82 Long term (current) use of aspirin

== ENCOUNTER 2017-01-19 17:37 | Emergency (ER) | payer MEDICARE ==
[~2017-01-19] VITALS: Ht 175.3 cm; Wt 93.2 kg
[~2017-01-19 17:37] MED LIST changes: +AUGM875T28 PO; +CLAR1TAB2 PO; +MUCI600T37 PO
[2017-01-19] MEDS ORDERED: ALBUTEROL SULFATE 2.5 MG/0.5 ML INH NEB SOLN NEB ONE (18:15)
[2017-01-19] MEDS ORDERED: CEFD1CAP8 PO (19:13)
[2017-01-19] MEDS ORDERED: PRED20TA PO (19:13)
--- NOTE | 2017-01-19 19:30 | REP ---
Clinical: Cough and shortness of breath and wheezing. Technique: PA and lateral. Comparison: 12/03/2016. Findings: The patient is status post sternotomy and CABG. The lung melo demonstrate chronic interstitial changes. No obvious acute focal consolidation, effusion, or pneumothorax. Skeletal structures are intact. Impression: Chronic stable changes. No obvious acute cardiopulmonary process. If the patient remains symptomatic consider chest CT for further investigation. Signed by Kj De Anda MD 01/19/2017 07:20 P
[2017-01-19 19:40] VITALS: BP 149/82
== END 2017-01-19 19:41 | disposition home or self-care (01) ==
LOC: M ED 17:37
DX: J20.9 Acute bronchitis, unspecified (principal); J01.90 Acute sinusitis, unspecified; I10 Essential (primary) hypertension; Z87.01 Personal history of pneumonia (recurrent); Z87.891 Personal history of nicotine dependence; Z79.82 Long term (current) use of aspirin; Z79.899 Other long term (current) drug therapy

== ENCOUNTER → 2017-09-07 | Outpatient (CLI) | payer MEDICARE | LOC: M RAD 07:02 | DX: Z87.891 Personal history of nicotine dependence (principal) | CPT/HCPCS: 76775 ==

== ENCOUNTER → 2017-09-19 | Outpatient (REF) | payer MEDICARE | LOC: M SFHCPLAZ 15:22 | DX: R21 Rash and other nonspecific skin eruption (principal) | CPT/HCPCS: 87254 ==

== ENCOUNTER 2017-09-30 09:05 | Emergency (ER) | payer MEDICARE | END 2017-09-30 09:57 | disposition home or self-care (01) | LOC: M ED 09:05 | DX: L03.032 Cellulitis of left toe (principal); I25.10 Atherosclerotic heart disease of native coronary artery without angina pectoris; I10 Essential (primary) hypertension; Z86.69 Personal history of other diseases of the nervous system and sense organs; Z87.01 Personal history of pneumonia (recurrent); Z98.890 Other specified postprocedural states; Z95.1 Presence of aortocoronary bypass graft; Z87.891 Personal history of nicotine dependence; Z79.82 Long term (current) use of aspirin; Z79.899 Other long term (current) drug therapy | CPT/HCPCS: 99282 ==

== ENCOUNTER → 2017-12-19 | Outpatient (CLI) | payer MEDICARE ==
[2017-12-19 11:34] LABS: VALPROIC ACID (DEPAKOTE) 81.2 UG/ML (50.0-100.0)
== END ==
LOC: M LAB 10:44
DX: R56.9 Unspecified convulsions (principal)
CPT/HCPCS: 80164

== ENCOUNTER → 2017-12-28 | Outpatient (CLI) | payer MEDICARE ==
[2017-12-28 09:47] LABS: IONIZED CALCIUM 4.5 MG/DL (4.5-5.3)
[2017-12-28 10:11] LABS: ANION GAP 7 MEQ/L (8-16); BLOOD UREA NITROGEN 13 MG/DL (7-18); CALCIUM LEVEL 8.8 MG/DL (8.8-10.2); CARBON DIOXIDE LEVEL 32 MEQ/L (21-32); CHLORIDE LEVEL 101 MEQ/L (98-107); CREATININE FOR GFR 1.26 MG/DL (0.70-1.30); GLOMERULAR FILTRATION RATE 58.8 (>42); GLUCOSE, FASTING 90 MG/DL (70-100); MAGNESIUM LEVEL 2.3 MG/DL (1.8-2.4); POTASSIUM SERUM 4.8 MEQ/L (3.5-5.1); SODIUM LEVEL 140 MEQ/L (136-145)
== END ==
LOC: M LAB 09:00
DX: R25.2 Cramp and spasm (principal); J44.1 Chronic obstructive pulmonary disease with (acute) exacerbation; R91.8 Other nonspecific abnormal finding of lung field
CPT/HCPCS: 71046

== ENCOUNTER → 2018-06-18 | Outpatient (REF) | payer MEDICARE, OTHER ==
[~2018-06-18] MED LIST changes: +CEFD1CAP8 PO; +CLEO300C2 PO; -DIVA500T3; +DIVA500T94; +LISI2.5T5
== END ==
LOC: M LABNEURO 15:20
PROVIDERS: ATTEND Physician Assistant Medical
DX: G47.51 Confusional arousals (principal)

== ENCOUNTER → 2018-12-27 | Outpatient (CLI) | payer OTHER ==
[~2018-12-27] MED LIST changes: -ASPI81CH PO; +ASPI81CH49 PO; +LISI-1046; -LISI2.5T5; -OMEP20CA3; +OMEP20CA4
[2018-12-27 09:51] LABS: ALBUMIN 3.3 GM/DL (3.2-5.2); ALT/SGPT 13 U/L (12-78); BILIRUBIN,TOTAL 0.3 MG/DL (0.2-1.0); BLOOD UREA NITROGEN 16 MG/DL (7-18); CALCIUM LEVEL 8.7 MG/DL (8.8-10.2); CARBON DIOXIDE LEVEL 30 MEQ/L (21-32); CHLORIDE LEVEL 104 MEQ/L (98-107); CHOLESTEROL LEVEL 146 MG/DL (<200); CHOLESTEROL RISK RATIO 2.979 (<5); CREATININE FOR GFR 1.08 MG/DL (0.70-1.30); GLOMERULAR FILTRATION RATE > 60.0 (>35); GLUCOSE, FASTING 96 MG/DL (70-100); HDL CHOLESTEROL 49 MG/DL (>40); LDL CHOLESTEROL 76 MG/DL (<100); NON-HDL-C 97 MG/DL; SODIUM LEVEL 141 MEQ/L (136-145); TOTAL PROTEIN 7.4 GM/DL (6.4-8.2); TRIGLYCERIDES LEVEL 106 MG/DL (<150); URIC ACID 7.7 MG/DL (3.5-7.2); VALPROIC ACID (DEPAKOTE) 54.5 UG/ML (50.0-100.0)
[2018-12-27 11:06] LABS: HEMOGLOBIN A1c 6.4 %
[2018-12-27 12:20] LABS: VITAMIN B12 LEVEL 504 PG/ML (247-911)
== END ==
LOC: M LAB 08:46
PROVIDERS: ATTEND Family Medicine
DX: G47.51 Confusional arousals (principal); I10 Essential (primary) hypertension; E78.5 Hyperlipidemia, unspecified; Z13.1 Encounter for screening for diabetes mellitus; M1A.9XX0 Chronic gout, unspecified, without tophus (tophi)

== ENCOUNTER → 2019-03-08 | Outpatient (REF) ==
[~2019-03-08] MED LIST changes: -OMEP40CA2 PO; +OMEP40CA97 PO
[2019-03-08 14:39] LABS: RUBELLA IgG QUALITATIVE IMMUNE (IMMUNE)
== END ==
LOC: M LAB 13:19
PROVIDERS: ATTEND Nurse Practitioner Adult Health
DX: Z02.9 Encounter for administrative examinations, unspecified (principal)

== ENCOUNTER → 2019-04-23 | Outpatient (REF) | payer OTHER ==
[~2019-04-23] MED LIST changes: +OMEP-172; -OMEP20CA4
[2019-04-23 15:56] LABS: ALBUMIN 3.5 GM/DL (3.2-5.2); ALT/SGPT 12 U/L (12-78); BILIRUBIN,TOTAL 0.4 MG/DL (0.2-1.0); BLOOD UREA NITROGEN 18 MG/DL (7-18); CARBON DIOXIDE LEVEL 31 MEQ/L (21-32); CHLORIDE LEVEL 102 MEQ/L (98-107); CREATININE FOR GFR 1.18 MG/DL (0.70-1.30); FREE T4 1.07 NG/DL (0.76-1.46); GLOMERULAR FILTRATION RATE > 60.0 (>35); GLUCOSE, FASTING 93 MG/DL (70-100); POTASSIUM SERUM 4.4 MEQ/L (3.5-5.1); SODIUM LEVEL 140 MEQ/L (136-145); TOTAL PROTEIN 7.8 GM/DL (6.4-8.2); URIC ACID 6.7 MG/DL (3.5-7.2); VALPROIC ACID (DEPAKOTE) 55.6 UG/ML (50.0-100.0)
== END ==
LOC: M LABDRAW1 11:21
PROVIDERS: ATTEND Physician Assistant
DX: I10 Essential (primary) hypertension (principal); E78.5 Hyperlipidemia, unspecified; M1A.9XX0 Chronic gout, unspecified, without tophus (tophi); R79.89 Other specified abnormal findings of blood chemistry
CPT/HCPCS: 36415; 80053; 80164; 84439; 84443; 84550; G0463

== ENCOUNTER 2019-04-30 08:19 | Emergency (ER) | payer OTHER ==
[~2019-04-30] VITALS: Ht 175.3 cm; Wt 95.2 kg
[2019-04-30] MEDS ORDERED: ATOR80TA59 (08:31)
[2019-04-30 09:44] LABS: RED BLOOD COUNT 4.57 10^6/uL (4.30-6.10); WHITE BLOOD COUNT 8.5 10^3/uL (4.0-10.0)
[2019-04-30 09:45] LABS: BASO % 0.5 % (0.0-1.0); EOS # 0.1 10^3/uL (0.0-0.5); EOS % 1.5 % (0.0-3.0); HEMATOCRIT 42.9 % (42.0-52.0); HEMOGLOBIN 13.5 g/dl (13.5-17.5); LYMPH # 2.3 10^3/uL (1.5-5.0); LYMPH % 27.2 % (24.0-44.0); MEAN CORPUSCULAR HEMOGLOBIN 29.5 pg (27.0-33.0); MEAN CORPUSCULAR HGB CONC 31.5 g/dl (32.0-36.5); MEAN CORPUSCULAR VOLUME 93.9 fl (80.0-96.0); MONO # 0.7 10^3/uL (0.0-0.8); MONO % 8.2 % (0.0-5.0); NEUTROPHILS # 5.3 10^3/uL (1.5-8.5); NEUTROPHILS % 62.1 % (36.0-66.0); PLATELET COUNT, AUTOMATED 225 10^3/uL (150-450)
[2019-04-30 10:06] LABS: ERYTHROCYTE SEDIMENTATION RATE 21 mm/hr (0-20)
[2019-04-30 10:07] LABS: C REACTIVE PROTEIN QUANTITATIV 1.5 MG/DL (0.00-0.30); URIC ACID 5.5 MG/DL (3.5-7.2)
[2019-04-30] MEDS ORDERED: KEFL500C17 PO (10:50)
--- NOTE | 2019-04-30 10:57 | REP ---
Clinical: Pain and swelling. Technique: AP, lateral, bilateral oblique views of the left ankle. Findings: Moderate lateral swelling. Age-related osteopenia and degenerative changes noted. No obvious acute fracture or dislocation. Impression: Swelling. No obvious acute fracture. Electronically Signed by Kj De Anda MD 04/30/2019 10:49 A
[2019-04-30 11:17] VITALS: BP 138/77
== END 2019-04-30 11:19 | disposition home or self-care (01) ==
LOC: M ED 08:19
DX: L03.116 Cellulitis of left lower limb (principal); I10 Essential (primary) hypertension; I25.10 Atherosclerotic heart disease of native coronary artery without angina pectoris; M10.9 Gout, unspecified; E78.5 Hyperlipidemia, unspecified; K21.9 Gastro-esophageal reflux disease without esophagitis; R56.9 Unspecified convulsions; Z79.899 Other long term (current) drug therapy; Z79.82 Long term (current) use of aspirin

== ENCOUNTER → 2019-06-13 | Outpatient (REF) | payer OTHER ==
[~2019-06-13] MED LIST changes: -OMEP-172; +OMEP1CAP73
[2019-06-13 15:23] LABS: INFLUENZA A AMPLIFICATION NEGATIVE (NEGATIVE); INFLUENZA B AMPLIFICATION NEGATIVE (NEGATIVE)
== END ==
LOC: M LAB REF 14:30
PROVIDERS: ATTEND Physician Assistant
DX: J11.1 Influenza due to unidentified influenza virus with other respiratory manifestations (principal)

== ENCOUNTER 2019-07-09 08:48 | Emergency (ER) | payer OTHER ==
[~2019-07-09] VITALS: Ht 175.3 cm; Wt 100.1 kg
--- NOTE | 2019-07-09 09:43 | REPVR ---
PROCEDURE INFORMATION: Exam: CT Head Without Contrast Exam date and time: 07/09/2019 9:21 AM Age: 79 years old Clinical indication: Pain; Headache; Additional info: Head/neck pain; ? Trauma TECHNIQUE: Imaging protocol: Computed tomography of the head without contrast. Radiation optimization: All CT scans at this facility use at least one of these dose optimization techniques: automated exposure control; mA and/or kV adjustment per patient size (includes targeted exams where dose is matched to clinical indication); or iterative reconstruction. COMPARISON: No relevant prior studies available. 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 There is mild ill-defined patchy hypodensity within the bilateral cerebral periventricular white matter, consistent with chronic microvascular ischemic changes. There is mild diffuse cerebral atrophy present, consistent with this patient's age. Ventricles: The ventricular system demonstrates mild diffuse compensatory enlargement. Bones/joints: Unremarkable. No acute fracture. Sinuses: Visualized sinuses are unremarkable. No fluid levels. Mastoid air cells: Visualized mastoid air cells are well aerated. Soft tissues: Unremarkable. IMPRESSION: 1. No acute infarction, masses or hemorrhage is seen. No acute intracranial abnormality is identified. 2. Diffuse age-related cerebral atrophy and mild chronic microvascular white matter ischemic changes. 3. 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 Electronically signed by: Camden Bardales On 07/09/2019 09:43:14 AM
--- NOTE | 2019-07-09 09:46 | REPVR ---
PROCEDURE INFORMATION: Exam: CT Cervical Spine Without Contrast Exam date and time: 07/09/2019 9:21 AM Age: 79 years old Clinical indication: Neck pain; Additional info: Head/neck pain; ? Trauma TECHNIQUE: Imaging protocol: Computed tomography images of the cervical spine without contrast. Radiation optimization: All CT scans at this facility use at least one of these dose optimization techniques: automated exposure control; mA and/or kV adjustment per patient size (includes targeted exams where dose is matched to clinical indication); or iterative reconstruction. COMPARISON: No relevant prior studies available. FINDINGS: Vertebrae: There is moderate diffuse osteopenia. The cervical vertebral bodies are normal height and alignment.No acute fracture or dislocation is seen. Discs/Spinal canal/Neural foramina: There are multilevel degenerative changes including degenerative disc disease, spondylosis and facet degenerative changes. Advanced degenerative spondylotic changes are seen in the form of marked disc space narrowing, marginal osteophytes, degenerative endplate changes and severe facet arthropathy at C5-C6 and C6-C7 levels. Epidural space: There is no evidence of epidural masses or hemorrhage. Prevertebral Space: The prevertebral soft tissues appear normal. Soft tissues: There is straightening of the cervical spine which could be secondary to positioning or muscle spasm. There are no soft tissue masses or fluid collections. Lungs: Lung apices are normal. IMPRESSION: No acute fracture or dislocation is seen. Electronically signed by: Camden Bardales On 07/09/2019 09:46:21 AM
[2019-07-09] MEDS ORDERED: MAPA325T4 PO (10:23)
[2019-07-09 10:28] VITALS: BP 155/88
== END 2019-07-09 10:40 | disposition home or self-care (01) ==
LOC: M ED 08:48
DX: S16.1XXA Strain of muscle, fascia and tendon at neck level, initial encounter (principal); I10 Essential (primary) hypertension; K21.9 Gastro-esophageal reflux disease without esophagitis; R56.9 Unspecified convulsions; Z95.1 Presence of aortocoronary bypass graft; Z79.899 Other long term (current) drug therapy; Z79.82 Long term (current) use of aspirin

== ENCOUNTER → 2019-10-21 | Outpatient (REF) | payer OTHER ==
[~2019-10-21] MED LIST changes: +ACET325T43 PO; -LISI-1046; +LISI2.5T2
[2019-10-21 11:17] LABS: ALBUMIN 3.2 GM/DL (3.2-5.2); ALT/SGPT 16 U/L (12-78); BILIRUBIN,TOTAL 0.3 MG/DL (0.2-1.0); BLOOD UREA NITROGEN 21 MG/DL (7-18); CALCIUM LEVEL 8.6 MG/DL (8.8-10.2); CARBON DIOXIDE LEVEL 32 MEQ/L (21-32); CHLORIDE LEVEL 103 MEQ/L (98-107); CHOLESTEROL LEVEL 153 MG/DL (<200); CHOLESTEROL RISK RATIO 3.326 (<5); CREATININE FOR GFR 1.19 MG/DL (0.70-1.30); GLOMERULAR FILTRATION RATE > 60.0 (>35); GLUCOSE, FASTING 108 MG/DL (70-100); HDL CHOLESTEROL 46 MG/DL (>40); LDL CHOLESTEROL 71 MG/DL (<100); NON-HDL-C 107 MG/DL; POTASSIUM SERUM 4.3 MEQ/L (3.5-5.1); SODIUM LEVEL 139 MEQ/L (136-145); TOTAL PROTEIN 7.5 GM/DL (6.4-8.2); TRIGLYCERIDES LEVEL 182 MG/DL (<150); URIC ACID 6.4 MG/DL (3.5-7.2); VALPROIC ACID (DEPAKOTE) 93.5 UG/ML (50.0-100.0)
[2019-10-21 13:00] LABS: HEMOGLOBIN A1c 6.4 %
== END ==
LOC: M SFHCPLAZ 09:09
PROVIDERS: ATTEND Physician Assistant
DX: I10 Essential (primary) hypertension (principal); R73.03 Prediabetes; E78.5 Hyperlipidemia, unspecified; M1A.9XX0 Chronic gout, unspecified, without tophus (tophi); Z79.899 Other long term (current) drug therapy

== ENCOUNTER → 2019-12-02 | Outpatient (CLI) | payer OTHER ==
[~2019-12-02] MED LIST changes: +GABA-843; +HYDR-3719
[2019-12-30 00:26] LABS: BASO % 0.6 % (0.0-1.0); EOS # 0.2 10^3/uL (0.0-0.5); EOS % 3.6 % (0.0-3.0); HEMATOCRIT 41.7 % (42.0-52.0); HEMOGLOBIN 13.5 g/dl (13.5-17.5); LYMPH # 2.4 10^3/uL (1.5-5.0); LYMPH % 37.2 % (24.0-44.0); MEAN CORPUSCULAR HEMOGLOBIN 29.7 pg (27.0-33.0); MEAN CORPUSCULAR HGB CONC 32.4 g/dl (32.0-36.5); MEAN CORPUSCULAR VOLUME 91.9 fl (80.0-96.0); MONO # 0.6 10^3/uL (0.0-0.8); MONO % 9.1 % (0.0-5.0); NEUTROPHILS # 3.2 10^3/uL (1.5-8.5); NEUTROPHILS % 49.3 % (36.0-66.0); PLATELET COUNT, AUTOMATED 165 10^3/uL (150-450); RED BLOOD COUNT 4.54 10^6/uL (4.30-6.10); WHITE BLOOD COUNT 6.5 10^3/uL (4.0-10.0)
== END ==
LOC: M LAB 09:49
PROVIDERS: ATTEND Physician Assistant Medical
DX: R51 Headache (principal); M25.50 Pain in unspecified joint

== ENCOUNTER → 2019-12-17 | Outpatient (CLI) | payer OTHER ==
[2020-01-27 08:11] LABS: ANTINUCLEAR ANTIBODIES DIRECT See Separate Report
== END ==
LOC: M LAB 10:50
PROVIDERS: ATTEND Physician Assistant Medical
DX: R51 Headache (principal); M25.50 Pain in unspecified joint

== ENCOUNTER → 2020-02-11 | Outpatient (CLI) | payer OTHER | LOC: M LAB 08:29 | PROVIDERS: ATTEND Physician Assistant Medical | DX: R51.9 Headache, unspecified (principal); R56.9 Unspecified convulsions ==

== ENCOUNTER 2020-03-04 13:36 | Emergency (ER) | payer OTHER ==
[~2020-03-04] VITALS: Ht 175.3 cm; Wt 99.1 kg
[~2020-03-04 13:36] MED LIST changes: -GABA-843; -HYDR-3719
[2020-03-04] MEDS ORDERED: HYDR-3719 (14:08)
[2020-03-04] MEDS ORDERED: GABA-843 (14:08)
[2020-03-04 15:04] LABS: BASO # 0.1 10^3/uL (0.0-0.2); BASO % 0.6 % (0.0-1.0); EOS # 0.2 10^3/uL (0.0-0.5); EOS % 2.3 % (0.0-3.0); HEMATOCRIT 42.4 % (42.0-52.0); HEMOGLOBIN 13.6 g/dl (13.5-17.5); LYMPH # 1.9 10^3/uL (1.5-5.0); LYMPH % 21.5 % (24.0-44.0); MEAN CORPUSCULAR HEMOGLOBIN 29.5 pg (27.0-33.0); MEAN CORPUSCULAR HGB CONC 32.1 g/dl (32.0-36.5); MONO # 0.8 10^3/uL (0.0-0.8); MONO % 9.6 % (0.0-5.0); NEUTROPHILS # 5.7 10^3/uL (1.5-8.5); NEUTROPHILS % 65.7 % (36.0-66.0); PLATELET COUNT, AUTOMATED 262 10^3/uL (150-450); RED BLOOD COUNT 4.61 10^6/uL (4.30-6.10); WHITE BLOOD COUNT 8.7 10^3/uL (4.0-10.0)
[2020-03-04 15:25] LABS: BLOOD UREA NITROGEN 19 MG/DL (7-18); C REACTIVE PROTEIN QUANTITATIV 3.24 MG/DL (0.00-0.30); CALCIUM LEVEL 8.9 MG/DL (8.8-10.2); CARBON DIOXIDE LEVEL 30 MEQ/L (21-32); CHLORIDE LEVEL 102 MEQ/L (98-107); CREATININE FOR GFR 1.01 MG/DL (0.70-1.30); GLOMERULAR FILTRATION RATE > 60.0 (>35); GLUCOSE, FASTING 128 MG/DL (70-100); POTASSIUM SERUM 4.6 MEQ/L (3.5-5.1); SODIUM LEVEL 136 MEQ/L (136-145)
[2020-03-04 15:26] LABS: ERYTHROCYTE SEDIMENTATION RATE 44 mm/hr (0-20)
[2020-03-04 15:50] LABS: URIC ACID 5.6 MG/DL (3.5-7.2)
[2020-03-04 15:54] VITALS: BP 141/66
[2020-03-04] MEDS ORDERED: PRED20TA PO (15:54)
== END 2020-03-04 16:10 | disposition home or self-care (01) ==
LOC: M ED 13:36
DX: M10.032 Idiopathic gout, left wrist (principal); M19.032 Primary osteoarthritis, left wrist; R56.9 Unspecified convulsions; E78.00 Pure hypercholesterolemia, unspecified; I10 Essential (primary) hypertension; K21.9 Gastro-esophageal reflux disease without esophagitis; M54.9 Dorsalgia, unspecified; Z79.899 Other long term (current) drug therapy; Z79.82 Long term (current) use of aspirin; Z95.1 Presence of aortocoronary bypass graft; Z95.2 Presence of prosthetic heart valve

== ENCOUNTER 2020-03-28 10:01 | Emergency (ER) | payer OTHER ==
[~2020-03-28] VITALS: Ht 175.3 cm; Wt 102.0 kg
[~2020-03-28 10:01] MED LIST changes: +GABA-843; +HYDR-3719
--- NOTE | 2020-03-28 10:31 | REP ---
INDICATION: DYSPNEA/COUGH COMPARISON: 12/28/2017 TECHNIQUE: Portable AP view of the chest FINDINGS: The mediastinum again demonstrates prior sternotomy and CABG. Cardiomegaly is suspected. The lung melo demonstrate chronic interstitial changes without acute consolidation, effusion, or pneumothorax. Skeletal structures are intact. IMPRESSION: Chronic appearing changes. No acute cardiopulmonary process appreciated. <Electronically signed by Kj De Anda > 03/28/20 1028
[2020-03-28 11:06] LABS: BASO % 0.6 % (0.0-1.0); EOS # 0.5 10^3/uL (0.0-0.5); EOS % 8.3 % (0.0-3.0); HEMATOCRIT 40.2 % (42.0-52.0); HEMOGLOBIN 12.7 g/dl (13.5-17.5); LYMPH # 1.1 10^3/uL (1.5-5.0); MEAN CORPUSCULAR HEMOGLOBIN 29.2 pg (27.0-33.0); MEAN CORPUSCULAR HGB CONC 31.6 g/dl (32.0-36.5); MEAN CORPUSCULAR VOLUME 92.4 fl (80.0-96.0); MONO # 0.6 10^3/uL (0.0-0.8); NEUTROPHILS # 4.2 10^3/uL (1.5-8.5); NEUTROPHILS % 64.8 % (36.0-66.0); PLATELET COUNT, AUTOMATED 163 10^3/uL (150-450); RED BLOOD COUNT 4.35 10^6/uL (4.30-6.10); WHITE BLOOD COUNT 6.5 10^3/uL (4.0-10.0)
[2020-03-28] MEDS ORDERED: methylPREDNISolone 125MG 2ML VIAL IV ONE (11:15)
[2020-03-28 11:44] LABS: ALBUMIN 3.2 GM/DL (3.2-5.2); ALT/SGPT 16 U/L (12-78); BILIRUBIN,DIRECT 0.1 MG/DL (0.0-0.2); BILIRUBIN,TOTAL 0.2 MG/DL (0.2-1.0); BLOOD UREA NITROGEN 15 MG/DL (7-18); CALCIUM LEVEL 8.6 MG/DL (8.8-10.2); CARBON DIOXIDE LEVEL 30 MEQ/L (21-32); CHLORIDE LEVEL 105 MEQ/L (98-107); CREATININE FOR GFR 1.01 MG/DL (0.70-1.30); GLOMERULAR FILTRATION RATE > 60.0 (>35); GLUCOSE, FASTING 92 MG/DL (70-100); NT-PRO BNP 265 PG/ML (<450); POTASSIUM SERUM 3.7 MEQ/L (3.5-5.1); SODIUM LEVEL 140 MEQ/L (136-145); TOTAL PROTEIN 7.2 GM/DL (6.4-8.2)
[2020-03-28] MEDS: ALBUTEROL 90 MCG/ACT 8GM HFA INHALER INH SCH ×3 (12:06→13:00)
[2020-03-28] MEDS ORDERED: ISOVUE-370 76% 100ML VIAL As Ordered ONE (12:19)
--- NOTE | 2020-03-28 12:42 | REP ---
INDICATION: Cough with dyspneic episode COMPARISON: 05/03/2012 TECHNIQUE: Axial contrast enhanced images from the thoracic inlet to the upper abdomen using pulmonary embolus technique with multiplanar re-formations. 75 ml Isovue 370 intravenous contrast material administered without complication. This CT examination was performed using the following dose reduction techniques: Automated exposure control, adjustment of mA and/or kv according to the patient's size, and use of iterative reconstruction technique. FINDINGS: Satisfactory enhancement of the pulmonary vasculature is achieved and no filling defects are identified to suggest pulmonary embolus. Further evaluation of the mediastinum demonstrates atherosclerotic changes to the thoracic aorta and coronary arteries along with evidence for prior sternotomy, CABG, and aortic valve repair. The bilateral lung melo demonstrate diffuse chronic interstitial changes and scattered scarring without consolidation, pleural effusion or pneumothorax. Tracheobronchial tree is patent. No nodule or mass lesion is identified. No adenopathy noted. Surrounding musculoskeletal structures intact IMPRESSION: No evidence for pulmonary embolus. Diffuse chronic interstitial changes. No acute mediastinal or pleural parenchymal process. <Electronically signed by Kj De Anda > 03/28/20 0505
[2020-03-28 13:34] VITALS: O2SAT 96
[2020-03-28] MEDS ORDERED: PRED50TA PO (13:38)
[2020-03-28] MEDS ORDERED: PROAAER10 INH (13:49)
[2020-03-28 14:30] VITALS: BP 153/85
--- NOTE | 2020-03-28 15:03 | ECGEPIP ---
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
== END 2020-03-28 14:33 | disposition home or self-care (01) ==
LOC: M ED 10:01
DX: J84.9 Interstitial pulmonary disease, unspecified (principal); J45.909 Unspecified asthma, uncomplicated; R06.02 Shortness of breath; I10 Essential (primary) hypertension; E78.5 Hyperlipidemia, unspecified; M10.9 Gout, unspecified; R56.9 Unspecified convulsions; Z95.5 Presence of coronary angioplasty implant and graft; Z95.1 Presence of aortocoronary bypass graft; Z95.2 Presence of prosthetic heart valve; Z79.82 Long term (current) use of aspirin; Z87.891 Personal history of nicotine dependence
CPT/HCPCS: 36415; 71045; 71275; 80047; 80048; 80076; 83605; 83880; 84436; 84443; 84484; 85025; 87040; 93005; 93041; 94760; 96374; 99285; J2930; Q9967; U0002

== ENCOUNTER → 2020-08-11 | Outpatient (CLI) | payer OTHER ==
[~2020-08-11] MED LIST changes: +GABA-282; -GABA-843; +PRED50TA PO; +PROAAER10 INH
== END ==
LOC: M LAB 09:10
PROVIDERS: ATTEND Physician Assistant Medical
DX: G40.909 Epilepsy, unspecified, not intractable, without status epilepticus (principal)

== ENCOUNTER 2020-10-02 11:21 | Emergency (ER) | payer OTHER ==
[~2020-10-02] VITALS: Ht 175.3 cm; Wt 99.6 kg
[2020-10-02 13:44] LABS: BASO # 0.1 10^3/uL (0.0-0.2); BASO % 0.6 % (0.0-1.0); EOS # 0.3 10^3/uL (0.0-0.5); EOS % 3.9 % (0.0-3.0); HEMATOCRIT 40.9 % (42.0-52.0); HEMOGLOBIN 13.2 g/dl (13.5-17.5); LYMPH # 2.3 10^3/uL (1.5-5.0); LYMPH % 27.9 % (24.0-44.0); MEAN CORPUSCULAR HEMOGLOBIN 29.9 pg (27.0-33.0); MEAN CORPUSCULAR HGB CONC 32.3 g/dl (32.0-36.5); MEAN CORPUSCULAR VOLUME 92.5 fl (80.0-96.0); MONO # 0.9 10^3/uL (0.0-0.8); MONO % 10.8 % (2.0-8.0); NEUTROPHILS # 4.6 10^3/uL (1.5-8.5); NEUTROPHILS % 56.2 % (36.0-66.0); PLATELET COUNT, AUTOMATED 193 10^3/uL (150-450); RED BLOOD COUNT 4.42 10^6/uL (4.30-6.10); WHITE BLOOD COUNT 8.2 10^3/uL (4.0-10.0)
--- NOTE | 2020-10-02 14:00 | REP ---
INDICATION: swelling/pain COMPARISON: None. TECHNIQUE: AP, lateral, bilateral oblique views. FINDINGS: Swelling and age-related degenerative changes. Ankle mortise intact. No obvious acute fracture or dislocation. IMPRESSION: Swelling and degenerative changes. No acute fracture or dislocation. <Electronically signed by Kj De Anda > 10/02/20 [id number]
[2020-10-02 14:08] LABS: C REACTIVE PROTEIN QUANTITATIV 2.19 MG/DL (0.00-0.30); URIC ACID 6.4 MG/DL (3.5-7.2)
[2020-10-02] MEDS ORDERED: NAPR-837 PO (14:16)
[2020-10-02 14:22] LABS: ERYTHROCYTE SEDIMENTATION RATE 15 mm/hr (0-20)
[2020-10-02 14:30] VITALS: BP 171/90
== END 2020-10-02 14:34 | disposition home or self-care (01) ==
LOC: M ED 11:21
DX: M10.072 Idiopathic gout, left ankle and foot (principal); I10 Essential (primary) hypertension; E78.5 Hyperlipidemia, unspecified; R56.9 Unspecified convulsions; K21.9 Gastro-esophageal reflux disease without esophagitis; M54.5 Low back pain; Z79.82 Long term (current) use of aspirin; Z79.899 Other long term (current) drug therapy

== ENCOUNTER → 2021-02-10 | Outpatient (CLI) | payer MEDICAID, OTHER ==
[~2021-02-10] MED LIST changes: -LISI2.5T2; +LISI2.5T9; +NAPR-837 PO; +OMEP40CA4 PO; -OMEP40CA97 PO
== END ==
LOC: M LAB 09:24
PROVIDERS: ATTEND Physician Assistant Medical
DX: R56.9 Unspecified convulsions (principal)

== ENCOUNTER → 2021-06-23 | Outpatient (CLI) | payer OTHER ==
[~2021-06-23] MED LIST changes: -CEFD1CAP8 PO; +CEFD300C41 PO
[2021-06-23 13:26] LABS: BASO % 0.4 % (0.0-1.0); EOS % 0.4 % (0.0-3.0); HEMATOCRIT 42.7 % (42.0-52.0); HEMOGLOBIN 13.8 g/dl (13.5-17.5); LYMPH # 2.2 10^3/uL (1.5-5.0); MEAN CORPUSCULAR HEMOGLOBIN 30.3 pg (27.0-33.0); MEAN CORPUSCULAR HGB CONC 32.3 g/dl (32.0-36.5); MEAN CORPUSCULAR VOLUME 93.8 fl (80.0-96.0); MONO # 0.8 10^3/uL (0.0-0.8); MONO % 10.2 % (2.0-8.0); NEUTROPHILS # 4.5 10^3/uL (1.5-8.5); NEUTROPHILS % 59.7 % (36.0-66.0); PLATELET COUNT, AUTOMATED 147 10^3/uL (150-450); RED BLOOD COUNT 4.55 10^6/uL (4.30-6.10); WHITE BLOOD COUNT 7.6 10^3/uL (4.0-10.0)
[2021-06-23 13:50] LABS: MALB URINE SIEMENS 9.3 MG/L; MAU/CREAT RATIO 3.7 MCG/MG (0.0-30.0)
[2021-06-23 14:25] LABS: ALBUMIN 3.5 GM/DL (3.2-5.2); ALT/SGPT 18 U/L (12-78); BILIRUBIN,TOTAL 0.4 MG/DL (0.2-1.0); BLOOD UREA NITROGEN 16 MG/DL (7-18); CALCIUM LEVEL 8.9 MG/DL (8.8-10.2); CARBON DIOXIDE LEVEL 29 MEQ/L (21-32); CHLORIDE LEVEL 102 MEQ/L (98-107); CHOLESTEROL LEVEL 148 MG/DL (<200); CHOLESTEROL RISK RATIO 2.596 (<5); CREATININE FOR GFR 1.11 MG/DL (0.70-1.30); FREE T4 0.97 NG/DL (0.76-1.46); GLOMERULAR FILTRATION RATE > 60.0 (>35); GLUCOSE, FASTING 95 MG/DL (70-100); HDL CHOLESTEROL 57 MG/DL (>40); LDL CHOLESTEROL 68 MG/DL (<100); NON-HDL-C 91 MG/DL; POTASSIUM SERUM 4.1 MEQ/L (3.5-5.1); SODIUM LEVEL 140 MEQ/L (136-145); TOTAL PROTEIN 7.1 GM/DL (6.4-8.2); TRIGLYCERIDES LEVEL 117 MG/DL (<150); URIC ACID 6.7 MG/DL (3.5-7.2)
[2021-06-23 14:49] LABS: HEMOGLOBIN A1c 6.1 %
== END ==
LOC: M PLALAB 10:49
PROVIDERS: ATTEND Nurse Practitioner Family
DX: E78.5 Hyperlipidemia, unspecified (principal); I10 Essential (primary) hypertension; E11.9 Type 2 diabetes mellitus without complications; M1A.9XX0 Chronic gout, unspecified, without tophus (tophi); Z12.5 Encounter for screening for malignant neoplasm of prostate

== ENCOUNTER → 2021-11-05 | Outpatient (CLI) | payer OTHER ==
[2021-11-05 15:03] LABS: BASO # 0.1 10^3/uL (0.0-0.2); BASO % 0.8 % (0.0-1.0); EOS # 0.2 10^3/uL (0.0-0.5); EOS % 3.2 % (0.0-3.0); HEMATOCRIT 40.2 % (42.0-52.0); HEMOGLOBIN 13.3 g/dl (13.5-17.5); LYMPH # 3.1 10^3/uL (1.5-5.0); LYMPH % 43.9 % (24.0-44.0); MEAN CORPUSCULAR HEMOGLOBIN 31.1 pg (27.0-33.0); MEAN CORPUSCULAR HGB CONC 33.1 g/dl (32.0-36.5); MEAN CORPUSCULAR VOLUME 93.9 fl (80.0-96.0); MONO # 0.5 10^3/uL (0.0-0.8); NEUTROPHILS # 3.2 10^3/uL (1.5-8.5); PLATELET COUNT, AUTOMATED 163 10^3/uL (150-450); RED BLOOD COUNT 4.28 10^6/uL (4.30-6.10); WHITE BLOOD COUNT 7.2 10^3/uL (4.0-10.0)
[2021-11-05 15:33] LABS: ALBUMIN 3.5 GM/DL (3.2-5.2); BILIRUBIN,TOTAL 0.4 MG/DL (0.2-1.0); CALCIUM LEVEL 9.1 MG/DL (8.8-10.2); CHOLESTEROL RISK RATIO 2.803 (<5); CREATININE FOR GFR 1.24 MG/DL (0.70-1.30); GLOMERULAR FILTRATION RATE 59.3 (>35); POTASSIUM SERUM 4.1 MEQ/L (3.5-5.1); TOTAL PROTEIN 7.1 GM/DL (6.4-8.2); VALPROIC ACID (DEPAKOTE) 77.9 UG/ML (50.0-100.0)
== END ==
LOC: M PLALAB 12:07
PROVIDERS: ATTEND Nurse Practitioner Family
DX: E78.5 Hyperlipidemia, unspecified (principal); M16.12 Unilateral primary osteoarthritis, left hip; I10 Essential (primary) hypertension; E11.9 Type 2 diabetes mellitus without complications; M1A.9XX0 Chronic gout, unspecified, without tophus (tophi); M25.552 Pain in left hip

== ENCOUNTER → 2021-11-09 | Outpatient (REF) | payer OTHER ==
[2021-11-09 14:19] LABS: MALB URINE SIEMENS 5.4 MG/L; MAU/CREAT RATIO 3.8 MCG/MG (0.0-30.0)
== END ==
LOC: M SFHCPLAZ 13:03
PROVIDERS: ATTEND Nurse Practitioner Family
DX: I10 Essential (primary) hypertension (principal); M1A.9XX0 Chronic gout, unspecified, without tophus (tophi)

== ENCOUNTER → 2022-04-05 | Outpatient (CLI) | payer OTHER ==
[2022-04-05 18:15] LABS: BASO # 0.1 10^3/uL (0.0-0.2); BASO % 0.5 % (0.0-1.0); EOS # 0.4 10^3/uL (0.0-0.5); EOS % 4.2 % (0.0-3.0); HEMATOCRIT 38.1 % (42.0-52.0); HEMOGLOBIN 12.1 g/dl (13.5-17.5); LYMPH # 2.4 10^3/uL (1.5-5.0); LYMPH % 25.1 % (24.0-44.0); MEAN CORPUSCULAR HEMOGLOBIN 31.1 pg (27.0-33.0); MEAN CORPUSCULAR HGB CONC 31.8 g/dl (32.0-36.5); MEAN CORPUSCULAR VOLUME 97.9 fl (80.0-96.0); MONO # 0.6 10^3/uL (0.0-0.8); MONO % 6.8 % (2.0-8.0); NEUTROPHILS % 63.1 % (36.0-66.0); PLATELET COUNT, AUTOMATED 175 10^3/uL (150-450); RED BLOOD COUNT 3.89 10^6/uL (4.30-6.10); WHITE BLOOD COUNT 9.4 10^3/uL (4.0-10.0)
[2022-04-05 18:28] LABS: HEMOGLOBIN A1c 5.7 % (4.0-6.0)
[2022-04-05 19:01] LABS: CHLORIDE LEVEL 101 MMOL/L (98-107); POTASSIUM SERUM 4.7 MMOL/L (3.5-5.1); SODIUM LEVEL 140 MMOL/L (136-145)
[2022-04-05 19:03] LABS: ALBUMIN 3.2 G/DL (3.2-5.2); CARBON DIOXIDE LEVEL 30 MMOL/L (20-31)
[2022-04-05 19:06] LABS: URIC ACID 7.3 MG/DL (3.7-9.2)
[2022-04-05 19:07] LABS: BILIRUBIN,TOTAL 0.3 MG/DL (0.3-1.2); BLOOD UREA NITROGEN 22 MG/DL (9-23); TRIGLYCERIDES LEVEL 151 MG/DL (<150)
[2022-04-05 19:08] LABS: ALKALINE PHOSPHATASE 159 U/L (46-116); CALCIUM LEVEL 8.9 MG/DL (8.3-10.6); GLUCOSE, FASTING 123 MG/DL (74-106)
[2022-04-05 19:09] LABS: HDL CHOLESTEROL 36.5 MG/DL (>40); TOTAL PROTEIN 6.7 G/DL (5.7-8.2)
[2022-04-05 19:10] LABS: ALT/SGPT 25 U/L (7.0-40); AST/SGOT 19 U/L (<34); CHOLESTEROL LEVEL 128 MG/DL (<200); CREATININE FOR GFR 1.05 MG/DL (0.70-1.30); GLOMERULAR FILTRATION RATE > 60.0 (>35); LDL CHOLESTEROL 61.3 MG/DL (<100); NON-HDL-C 92 MG/DL
[2022-04-07 21:09] LABS: TESTOSTERONE FREE (DIRECT) 3.4 pg/mL (6.6-18.1)
== END ==
LOC: M PLALAB 15:56
PROVIDERS: ATTEND Nurse Practitioner Family
DX: I10 Essential (primary) hypertension (principal); Z12.5 Encounter for screening for malignant neoplasm of prostate
CPT/HCPCS: 36415; 80053; 80061; 83036; 84402; 84403; 84550; 85025; G0103

== ENCOUNTER → 2022-08-08 | Outpatient (CLI) | payer MEDICARE ==
[2022-08-08 15:04] LABS: BASO % 0.4 % (0.0-1.0); EOS # 0.2 10^3/uL (0.0-0.5); EOS % 2.3 % (0.0-3.0); HEMATOCRIT 41.3 % (42.0-52.0); HEMOGLOBIN 13.4 g/dl (13.5-17.5); LYMPH # 2.6 10^3/uL (1.5-5.0); LYMPH % 28.1 % (24.0-44.0); MEAN CORPUSCULAR HEMOGLOBIN 30.9 pg (27.0-33.0); MEAN CORPUSCULAR HGB CONC 32.4 g/dl (32.0-36.5); MEAN CORPUSCULAR VOLUME 95.2 fl (80.0-96.0); MONO # 0.7 10^3/uL (0.0-0.8); MONO % 7.5 % (2.0-8.0); NEUTROPHILS # 5.6 10^3/uL (1.5-8.5); NEUTROPHILS % 61.4 % (36.0-66.0); PLATELET COUNT, AUTOMATED 171 10^3/uL (150-450); RED BLOOD COUNT 4.34 10^6/uL (4.30-6.10); WHITE BLOOD COUNT 9.1 10^3/uL (4.0-10.0)
[2022-08-08 17:06] LABS: HEMOGLOBIN A1c 5.8 % (4.0-6.0)
[2022-08-08 20:07] LABS: ALBUMIN 3.6 G/DL (3.2-5.2); ALKALINE PHOSPHATASE 172 U/L (46-116); ALT/SGPT 30 U/L (7.0-40); AST/SGOT 32 U/L (<34); BILIRUBIN,TOTAL 0.4 MG/DL (0.3-1.2); BLOOD UREA NITROGEN 19 MG/DL (9-23); CALCIUM LEVEL 9.3 MG/DL (8.3-10.6); CARBON DIOXIDE LEVEL 32 MMOL/L (20-31); CHLORIDE LEVEL 105 MMOL/L (98-107); CHOLESTEROL LEVEL 130 MG/DL (<200); CHOLESTEROL RISK RATIO 2.48 (<5); CREATININE FOR GFR 1.05 MG/DL (0.70-1.30); GLOMERULAR FILTRATION RATE > 60.0 (>35); GLUCOSE, FASTING 90 MG/DL (74-106); HDL CHOLESTEROL 52.4 MG/DL (>40); LDL CHOLESTEROL 62.2 MG/DL (<100); NON-HDL-C 77.6 MG/DL; POTASSIUM SERUM 4.8 MMOL/L (3.5-5.1); SODIUM LEVEL 141 MMOL/L (136-145); TOTAL PROTEIN 7.2 G/DL (5.7-8.2); TRIGLYCERIDES LEVEL 77 MG/DL (<150)
== END ==
LOC: M PLALAB 11:21
PROVIDERS: ATTEND Nurse Practitioner Family
DX: E78.5 Hyperlipidemia, unspecified (principal); I10 Essential (primary) hypertension; M1A.9XX0 Chronic gout, unspecified, without tophus (tophi); E11.9 Type 2 diabetes mellitus without complications

== ENCOUNTER → 2023-02-06 | Outpatient (CLI) | payer MEDICARE ==
[~2023-02-06] MED LIST changes: -CEFD300C41 PO; +CEFD300C42 PO
[2023-02-06 15:48] LABS: BASO # 0.1 10^3/uL (0.0-0.2); BASO % 0.9 % (0.0-1.0); EOS # 0.2 10^3/uL (0.0-0.5); EOS % 2.1 % (0.0-3.0); HEMATOCRIT 40.4 % (42.0-52.0); HEMOGLOBIN 13.7 g/dl (13.5-17.5); LYMPH # 2.2 10^3/uL (1.5-5.0); LYMPH % 27.3 % (24.0-44.0); MEAN CORPUSCULAR HEMOGLOBIN 32.2 pg (27.0-33.0); MEAN CORPUSCULAR HGB CONC 33.9 g/dl (32.0-36.5); MEAN CORPUSCULAR VOLUME 94.8 fl (80.0-96.0); MONO # 0.5 10^3/uL (0.0-0.8); MONO % 6.5 % (2.0-8.0); NEUTROPHILS % 62.8 % (36.0-66.0); PLATELET COUNT, AUTOMATED 178 10^3/uL (150-450); RED BLOOD COUNT 4.26 10^6/uL (4.30-6.10)
[2023-02-06 15:59] LABS: ALBUMIN 3.5 G/DL (3.2-5.2); ALKALINE PHOSPHATASE 183 U/L (46-116); ALT/SGPT 16 U/L (7.0-40); AST/SGOT 19 U/L (<34); BILIRUBIN,TOTAL 0.3 MG/DL (0.3-1.2); BLOOD UREA NITROGEN 20 MG/DL (9-23); CARBON DIOXIDE LEVEL 32 MMOL/L (20-31); CHLORIDE LEVEL 107 MMOL/L (98-107); CHOLESTEROL LEVEL 156 MG/DL (<200); CHOLESTEROL RISK RATIO 3.37 (<5); CREATININE FOR GFR 1.05 MG/DL (0.70-1.30); GLOMERULAR FILTRATION RATE > 60.0 (>35); GLUCOSE, FASTING 142 MG/DL (74-106); HDL CHOLESTEROL 46.2 MG/DL (>40); LDL CHOLESTEROL 78.2 MG/DL (<100); NON-HDL-C 109.8 MG/DL; POTASSIUM SERUM 4.3 MMOL/L (3.5-5.1); SODIUM LEVEL 143 MMOL/L (136-145); TOTAL PROTEIN 7.3 G/DL (5.7-8.2); TRIGLYCERIDES LEVEL 158 MG/DL (<150); URIC ACID 7.1 MG/DL (3.7-9.2)
[2023-02-06 17:31] LABS: HEMOGLOBIN A1c 5.8 % (4.0-6.0)
== END ==
LOC: M PLALAB 12:29
PROVIDERS: ATTEND Nurse Practitioner Family
DX: E78.5 Hyperlipidemia, unspecified (principal); I10 Essential (primary) hypertension; E11.9 Type 2 diabetes mellitus without complications; M1A.9XX0 Chronic gout, unspecified, without tophus (tophi); Z12.5 Encounter for screening for malignant neoplasm of prostate

== ENCOUNTER → 2023-08-10 | Outpatient (CLI) | payer MEDICARE, OTHER ==
[~2023-08-10] MED LIST changes: +CEFD1CAP9 PO; -CEFD300C42 PO
[2023-08-10 18:00] LABS: BASO # 0.1 10^3/uL (0.0-0.2); BASO % 0.7 % (0.0-1.0); EOS # 0.9 10^3/uL (0.0-0.5); EOS % 10.2 % (0.0-3.0); HEMATOCRIT 44.2 % (42.0-52.0); LYMPH # 2.4 10^3/uL (1.5-5.0); LYMPH % 28.5 % (24.0-44.0); MEAN CORPUSCULAR HEMOGLOBIN 29.1 pg (27.0-33.0); MEAN CORPUSCULAR HGB CONC 31.7 g/dl (32.0-36.5); MEAN CORPUSCULAR VOLUME 91.9 fl (80.0-96.0); MONO # 0.7 10^3/uL (0.0-0.8); MONO % 8.1 % (2.0-8.0); NEUTROPHILS # 4.4 10^3/uL (1.5-8.5); NEUTROPHILS % 52.3 % (36.0-66.0); PLATELET COUNT, AUTOMATED 178 10^3/uL (150-450); RED BLOOD COUNT 4.81 10^6/uL (4.30-6.10); WHITE BLOOD COUNT 8.4 10^3/uL (4.0-10.0)
[2023-08-10 18:06] LABS: URIC ACID 5.9 MG/DL (3.7-9.2)
[2023-08-10 18:09] LABS: ALBUMIN 3.8 G/DL (3.2-5.2); ALKALINE PHOSPHATASE 239 U/L (46-116); ALT/SGPT 23 U/L (7.0-40); AST/SGOT 22 U/L (<34); BILIRUBIN,TOTAL 0.4 MG/DL (0.3-1.2); BLOOD UREA NITROGEN 23 MG/DL (9-23); CALCIUM LEVEL 9.1 MG/DL (8.3-10.6); CARBON DIOXIDE LEVEL 31 MMOL/L (20-31); CHLORIDE LEVEL 103 MMOL/L (98-107); CHOLESTEROL LEVEL 128 MG/DL (<200); GLOMERULAR FILTRATION RATE > 60.0 (>35); GLUCOSE, FASTING 96 MG/DL (74-106); HDL CHOLESTEROL 45.7 MG/DL (>40); LDL CHOLESTEROL 45.9 MG/DL (<100); MALB URINE SIEMENS < 3.0 MG/L; NON-HDL-C 82.3 MG/DL; POTASSIUM SERUM 4.8 MMOL/L (3.5-5.1); SODIUM LEVEL 139 MMOL/L (136-145); TOTAL PROTEIN 7.2 G/DL (5.7-8.2); TRIGLYCERIDES LEVEL 182 MG/DL (<150)
[2023-08-10 18:10] LABS: CREATININE, URINE 101.2 MG/DL; MAU/CREAT RATIO 2.9 MCG/MG (0.0-30.0)
== END ==
LOC: M PLALAB 14:31
PROVIDERS: ATTEND Nurse Practitioner Family
DX: I10 Essential (primary) hypertension (principal); Z12.5 Encounter for screening for malignant neoplasm of prostate; E11.9 Type 2 diabetes mellitus without complications
CPT/HCPCS: 36415; 80053; 80061; 82043; 83036; 84550; 85025; G0103

== ENCOUNTER → 2023-09-05 | Outpatient (CLI) | payer OTHER ==
[2023-09-05 13:20] LABS: BASO # 0.1 10^3/uL (0.0-0.2); BASO % 0.7 % (0.0-1.0); EOS # 1.1 10^3/uL (0.0-0.5); EOS % 12.8 % (0.0-3.0); HEMATOCRIT 41.6 % (42.0-52.0); HEMOGLOBIN 13.6 g/dl (13.5-17.5); LYMPH # 1.6 10^3/uL (1.5-5.0); LYMPH % 18.8 % (24.0-44.0); MEAN CORPUSCULAR HEMOGLOBIN 29.6 pg (27.0-33.0); MEAN CORPUSCULAR HGB CONC 32.7 g/dl (32.0-36.5); MEAN CORPUSCULAR VOLUME 90.4 fl (80.0-96.0); MONO # 0.6 10^3/uL (0.0-0.8); MONO % 6.6 % (2.0-8.0); NEUTROPHILS # 5.2 10^3/uL (1.5-8.5); NEUTROPHILS % 60.7 % (36.0-66.0); PLATELET COUNT, AUTOMATED 174 10^3/uL (150-450); WHITE BLOOD COUNT 8.5 10^3/uL (4.0-10.0)
[2023-09-05 13:47] LABS: ALBUMIN 3.1 G/DL (3.2-5.2); ALKALINE PHOSPHATASE 194 U/L (46-116); ALT/SGPT 14 U/L (7.0-40); AST/SGOT 17 U/L (<34); BILIRUBIN,TOTAL 0.3 MG/DL (0.3-1.2); BLOOD UREA NITROGEN 21 MG/DL (9-23); CALCIUM LEVEL 8.8 MG/DL (8.3-10.6); CARBON DIOXIDE LEVEL 29 MMOL/L (20-31); CHLORIDE LEVEL 102 MMOL/L (98-107); CREATININE FOR GFR 1.13 MG/DL (0.70-1.30); GLOMERULAR FILTRATION RATE > 60.0 (>35); GLUCOSE, FASTING 124 MG/DL (74-106); POTASSIUM SERUM 4.6 MMOL/L (3.5-5.1); SODIUM LEVEL 138 MMOL/L (136-145); TOTAL PROTEIN 6.7 G/DL (5.7-8.2)
== END ==
LOC: M LAB 11:41
PROVIDERS: ATTEND Physician Assistant Medical
DX: R53.83 Other fatigue (principal)

== ENCOUNTER → 2023-09-05 | Outpatient (REF) | payer OTHER | LOC: M SFHCPLAZ 10:11 | PROVIDERS: ATTEND Physician Assistant Medical | DX: J20.9 Acute bronchitis, unspecified (principal) ==

== ENCOUNTER → 2023-09-11 | Outpatient (CLI) | payer OTHER | LOC: M PLALAB 11:36 | PROVIDERS: ATTEND Physician Assistant Medical | DX: J40 Bronchitis, not specified as acute or chronic (principal) ==

== ENCOUNTER → 2023-09-29 | Outpatient (CLI) | payer OTHER ==
[2023-09-29 15:57] LABS: BASO # 0.1 10^3/uL (0.0-0.2); BASO % 0.8 % (0.0-1.0); EOS # 0.7 10^3/uL (0.0-0.5); EOS % 8.2 % (0.0-3.0); HEMATOCRIT 41.2 % (42.0-52.0); HEMOGLOBIN 13.3 g/dl (13.5-17.5); LYMPH # 2.1 10^3/uL (1.5-5.0); LYMPH % 26.6 % (24.0-44.0); MEAN CORPUSCULAR HEMOGLOBIN 29.5 pg (27.0-33.0); MEAN CORPUSCULAR HGB CONC 32.3 g/dl (32.0-36.5); MEAN CORPUSCULAR VOLUME 91.4 fl (80.0-96.0); MONO # 0.7 10^3/uL (0.0-0.8); MONO % 8.4 % (2.0-8.0); NEUTROPHILS # 4.5 10^3/uL (1.5-8.5); NEUTROPHILS % 55.7 % (36.0-66.0); PLATELET COUNT, AUTOMATED 184 10^3/uL (150-450); RED BLOOD COUNT 4.51 10^6/uL (4.30-6.10)
== END ==
LOC: M PLALAB 13:31
PROVIDERS: ATTEND Family Medicine
DX: S80.861A Insect bite (nonvenomous), right lower leg, initial encounter (principal); Z79.899 Other long term (current) drug therapy; Y92.9 Unspecified place or not applicable; Y93.9 Activity, unspecified

== ENCOUNTER → 2023-10-09 | Outpatient (CLI) | payer OTHER | LOC: M RAD 09:46 | PROVIDERS: ATTEND Nurse Practitioner Family | DX: M54.41 Lumbago with sciatica, right side (principal) ==

== ENCOUNTER → 2024-02-13 | Outpatient (CLI) | payer OTHER ==
[~2024-02-13] MED LIST changes: +GABA-1172; -GABA-282
[2024-02-13 15:18] LABS: BASO # 0.1 10^3/uL (0.0-0.2); BASO % 0.7 % (0.0-1.0); EOS # 0.5 10^3/uL (0.0-0.5); EOS % 5.4 % (0.0-3.0); HEMATOCRIT 40.9 % (42.0-52.0); HEMOGLOBIN 13.5 g/dl (13.5-17.5); LYMPH # 2.1 10^3/uL (1.5-5.0); LYMPH % 24.2 % (24.0-44.0); MEAN CORPUSCULAR HEMOGLOBIN 31.4 pg (27.0-33.0); MEAN CORPUSCULAR VOLUME 95.1 fl (80.0-96.0); MONO # 0.6 10^3/uL (0.0-0.8); MONO % 6.8 % (2.0-8.0); NEUTROPHILS # 5.3 10^3/uL (1.5-8.5); NEUTROPHILS % 62.7 % (36.0-66.0); PLATELET COUNT, AUTOMATED 161 10^3/uL (150-450); WHITE BLOOD COUNT 8.5 10^3/uL (4.0-10.0)
[2024-02-13 15:30] LABS: HEMOGLOBIN A1c 5.7 % (4.0-6.0)
[2024-02-13 15:46] LABS: URIC ACID 6.9 MG/DL (3.7-9.2)
[2024-02-13 15:49] LABS: ALBUMIN 3.3 G/DL (3.2-5.2); ALKALINE PHOSPHATASE 217 U/L (46-116); ALT/SGPT 15 U/L (7.0-40); AST/SGOT 19 U/L (<34); BILIRUBIN,TOTAL 0.3 MG/DL (0.3-1.2); BLOOD UREA NITROGEN 23 MG/DL (9-23); CALCIUM LEVEL 9.1 MG/DL (8.3-10.6); CARBON DIOXIDE LEVEL 31 MMOL/L (20-31); CHLORIDE LEVEL 107 MMOL/L (98-107); CHOLESTEROL LEVEL 124 MG/DL (<200); CHOLESTEROL RISK RATIO 3.03 (<5); CREATININE FOR GFR 1.01 MG/DL (0.70-1.30); GLOMERULAR FILTRATION RATE > 60.0 (>35); GLUCOSE, FASTING 129 MG/DL (74-106); HDL CHOLESTEROL 40.8 MG/DL (>40); LDL CHOLESTEROL 67.6 MG/DL (<100); MAGNESIUM LEVEL 1.9 MG/DL (1.8-2.4); NON-HDL-C 83.2 MG/DL; POTASSIUM SERUM 4.4 MMOL/L (3.5-5.1); SODIUM LEVEL 142 MMOL/L (136-145); TRIGLYCERIDES LEVEL 78 MG/DL (<150)
== END ==
LOC: M PLALAB 12:15
PROVIDERS: ATTEND Nurse Practitioner Family
DX: I10 Essential (primary) hypertension (principal); E11.9 Type 2 diabetes mellitus without complications; E78.5 Hyperlipidemia, unspecified; M1A.9XX0 Chronic gout, unspecified, without tophus (tophi)

== ENCOUNTER → 2024-04-26 | Outpatient (CLI) | payer OTHER ==
[2024-04-26 10:26] LABS: HEMATOCRIT 41.5 % (42.0-52.0); HEMOGLOBIN 13.7 g/dl (13.5-17.5); MEAN CORPUSCULAR HEMOGLOBIN 31.3 pg (27.0-33.0); MEAN CORPUSCULAR VOLUME 94.7 fl (80.0-96.0); PLATELET COUNT, AUTOMATED 131 10^3/uL (150-450); RED BLOOD COUNT 4.38 10^6/uL (4.30-6.10)
[2024-04-26 10:44] LABS: ALBUMIN 3.1 G/DL (3.2-5.2); ALKALINE PHOSPHATASE 172 U/L (40-129); ALT/SGPT 14 U/L (7.0-40); AST/SGOT 17 U/L (<34); BILIRUBIN,TOTAL 0.3 MG/DL (0.3-1.2); BLOOD UREA NITROGEN 18 MG/DL (9-23); CALCIUM LEVEL 8.9 MG/DL (8.3-10.6); CARBON DIOXIDE LEVEL 31 MMOL/L (20-31); CHLORIDE LEVEL 102 MMOL/L (98-107); CREATININE FOR GFR 1.03 MG/DL (0.70-1.30); GLOMERULAR FILTRATION RATE > 60.0 (>35); GLUCOSE, FASTING 95 MG/DL (74-106); POTASSIUM SERUM 3.9 MMOL/L (3.5-5.1); SODIUM LEVEL 141 MMOL/L (136-145); TOTAL PROTEIN 7.2 G/DL (5.7-8.2)
== END ==
LOC: M PLAIMG 08:32
DX: R07.81 Pleurodynia (principal); Z95.1 Presence of aortocoronary bypass graft; Z95.2 Presence of prosthetic heart valve; R06.2 Wheezing

== ENCOUNTER → 2024-09-18 | Outpatient (CLI) | payer MEDICARE ==
[~2024-09-18] MED LIST changes: -PRED50TA PO; +PRED50TA57 PO
[2024-09-18 14:22] LABS: ALBUMIN 3.7 G/DL (3.2-5.2); BILIRUBIN,TOTAL 0.4 MG/DL (0.3-1.2); CALCIUM LEVEL 9.1 MG/DL (8.3-10.6); CHOLESTEROL RISK RATIO 3.17 (<5); CREATININE FOR GFR 1.02 MG/DL (0.70-1.30); GLOMERULAR FILTRATION RATE 71.6 (>35); HDL CHOLESTEROL 43.2 MG/DL (>40); LDL CHOLESTEROL 74.4 MG/DL (<100); NON-HDL-C 93.8 MG/DL; POTASSIUM SERUM 4.6 MMOL/L (3.5-5.1); TOTAL PROTEIN 7.3 G/DL (5.7-8.2)
[2024-09-18 14:26] LABS: BASO # 0.1 10^3/uL (0.0-0.2); BASO % 0.6 % (0.0-1.0); EOS # 0.3 10^3/uL (0.0-0.5); EOS % 3.2 % (0.0-3.0); HEMATOCRIT 41.7 % (42.0-52.0); HEMOGLOBIN 13.6 g/dl (13.5-17.5); LYMPH # 2.6 10^3/uL (1.5-5.0); LYMPH % 29.8 % (24.0-44.0); MEAN CORPUSCULAR HEMOGLOBIN 30.6 pg (27.0-33.0); MEAN CORPUSCULAR HGB CONC 32.6 g/dl (32.0-36.5); MEAN CORPUSCULAR VOLUME 93.9 fl (80.0-96.0); MONO # 0.9 10^3/uL (0.0-0.8); MONO % 9.9 % (2.0-8.0); NEUTROPHILS # 4.9 10^3/uL (1.5-8.5); NEUTROPHILS % 56.2 % (36.0-66.0); PLATELET COUNT, AUTOMATED 143 10^3/uL (150-450); RED BLOOD COUNT 4.44 10^6/uL (4.30-6.10); WHITE BLOOD COUNT 8.7 10^3/uL (4.0-10.0)
[2024-09-18 14:44] LABS: URIC ACID 6.5 MG/DL (3.7-9.2)
== END ==
LOC: M PLALAB 11:16
PROVIDERS: ATTEND Nurse Practitioner Family
DX: I10 Essential (primary) hypertension (principal)

== ENCOUNTER → 2025-03-21 | Outpatient (CLI) | payer MEDICARE ==
[~2025-03-21] MED LIST changes: -CAPT125TA; +CAPT1TAB16; +DIVA-41; -DIVA500T94
[2025-03-21 11:19] LABS: BASO # 0.1 10^3/uL (0.0-0.2); BASO % 0.8 % (0.0-1.0); EOS # 0.2 10^3/uL (0.0-0.5); EOS % 2.7 % (0.0-3.0); LYMPH # 2.3 10^3/uL (1.5-5.0); LYMPH % 29.9 % (24.0-44.0); MONO # 0.7 10^3/uL (0.0-0.8); MONO % 8.6 % (2.0-8.0); NEUTROPHILS # 4.4 10^3/uL (1.5-8.5); NEUTROPHILS % 57.6 % (36.0-66.0); PLATELET COUNT, AUTOMATED 113 10^3/uL (150-450)
[2025-03-21 11:44] LABS: CREATININE, URINE 139.8 MG/DL; MALB URINE SIEMENS < 3.0 MG/L
[2025-03-21 11:46] LABS: ALT/SGPT 17.0 U/L (7.0-40); AST/SGOT 20.0 U/L (<34); CALCIUM LEVEL 8.7 MG/DL (8.3-10.6); CARBON DIOXIDE LEVEL 32.0 MMOL/L (20-31); CHLORIDE LEVEL 101.0 MMOL/L (98-107); CHOLESTEROL LEVEL 142.0 MG/DL (<200); CHOLESTEROL RISK RATIO 3.42 (<5); CREATININE FOR GFR 1.02 MG/DL (0.70-1.30); GLOMERULAR FILTRATION RATE 71.6 (>35); LDL CHOLESTEROL 79.7 MG/DL (<100); MAGNESIUM LEVEL 1.8 MG/DL (1.8-2.4); NON-HDL-C 100.5 MG/DL; POTASSIUM SERUM 4.6 MMOL/L (3.5-5.1); PSA SCREENING 0.47 NG/ML (< 4.00); PTH INTACT 43.7 PG/ML (18.5-88.0); SODIUM LEVEL 141.0 MMOL/L (136-145); TRIGLYCERIDES LEVEL 104.0 MG/DL (<150)
[2025-03-21 11:48] LABS: FREE T4 0.99 NG/DL (0.89-1.76)
[2025-03-21 11:49] LABS: ESTIMATED AVERAGE GLUCOSE 143.0 MG/DL (60-110)
== END ==
LOC: M PLALAB 08:53
PROVIDERS: ATTEND Nurse Practitioner Family
DX: E55.9 Vitamin D deficiency, unspecified (principal); E78.5 Hyperlipidemia, unspecified; I10 Essential (primary) hypertension; E11.9 Type 2 diabetes mellitus without complications; Z12.5 Encounter for screening for malignant neoplasm of prostate
CPT/HCPCS: 36415; 80053; 80061; 82043; 82652; 83036; 83735; 83970; 84439; 84443; 85025; G0103